=== PATIENT | female | born 1965 | race Hispanic/Latino ===

== ENCOUNTER 2018-12-14 13:47 | Emergency (ER) | payer MEDICARE, OTHER ==
--- NOTE | 2018-12-14 14:22 | Event Note ---
ED Screening Note Date of service: 12/14/18 Time: 14:10 ED Screening Note: 53 y/o female comes in for WILTON, Hx/o D<, thyroid Ca. This initial assessment/diagnostic orders/clinical plan/treatment(s) is/are subject to change based on patients health status, clinical progression and re- assessment by fellow clinical providers in the ED. Further treatment and workup at subsequent clinical providers discretion. Patient/guardian urged not to elope from the ED as their condition may be serious if not clinically assessed and managed. Initial orders include:
[2018-12-14 15:08] LABS: Basophils # (Auto) 0.1 K/mm3 (0.0-0.1); Basophils % (Auto) 1.4 % (0.0-1.8); Eosinophils # (Auto) 0.4 K/mm3 (0.0-0.4); Eosinophils % (Auto) 4.8 % (0.0-4.3); Hematocrit 37.4 % (30.3-42.9); Hemoglobin 12.4 gm/dl (10.1-14.3); Lymphocytes # (Auto) 2.7 K/mm3 (1.2-5.4); Lymphocytes % (Auto) 35.1 % (13.4-35.0); Mean Corpuscular HGB Conc 33 % (30-34); Mean Corpuscular Volume 82 fl (79-97); Monocytes # (Auto) 0.5 K/mm3 (0.0-0.8); Platelet Count 170 K/mm3 (140-440); Red Blood Count 4.54 M/mm3 (3.65-5.03); Red Cell Distribution Width 17.2 % (13.2-15.2)
[2018-12-14 15:24] LABS: Alanine Aminotransferase 49 units/L (7-56); Albumin 3.5 g/dL (3.9-5); BUN/Creatinine Ratio 17; Blood Urea Nitrogen 17 mg/dL (7-17); Calcium 8.8 mg/dL (8.4-10.2); Hemolysis Index 6
[2018-12-14] MEDS ORDERED: HumuLIN R SUB-Q ONE ×2 (17:26→17:32)
[2018-12-14] MEDS ORDERED: HumuLIN R IV ONE (17:29)
[2018-12-14] MEDS ORDERED: ULTRAM PO ONE (17:31)
--- NOTE | 2018-12-14 17:34 | Emergency Department Report ---
ED General Adult HPI - General Chief complaint: Chest Pain Stated complaint: DIFFICULTY BREATHING/ ARM PAIN RT Time Seen by Provider: 12/14/18 17:26 Source: patient Mode of arrival: Ambulatory Limitations: No Limitations - History of Present Illness Initial comments: Mrs. Armstrong is a 53 yo female who presents with need for medical clearance to return to [facility]. She has chronic arm and back pain. Awaiting referral to pain clinic. Denies chest pain. IN september, stent placed in SVC for thrombosis. No fever. No dyspnea. Has not had her diabetes medicine today. She denies shortness of breath although that was her presenting complaint acco rding to triage intake form. -: Gradual, month(s) (several months of pain) Severity scale (0 -10): 8 Quality: other (burning pain in her arm and back, has been diagnosed with neuropathy and rotator cuff issues also diagnosed with DDD) Consistency: constant Associated Symptoms: denies other symptoms - Related Data Allergies Allergy/AdvReac Type Severity Reaction Status Date / Time No Known Allergies Allergy Verified 12/14/18 14:17 ED Review of Systems ROS: Stated complaint: DIFFICULTY BREATHING/ ARM PAIN RT Other details as noted in HPI Comment: All other systems reviewed and negative Constitutional: denies: fever, malaise Respiratory: denies: cough, shortness of breath Cardiovascular: denies: chest pain ED Past Medical Hx - Past Medical History Previous Medical History?: Yes Hx Deep Vein Thrombosis: Yes Additional medical history: 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 Absent: respiratory distress, wheezes, rales, rhonchi - Cardiovascular Cardiovascular Exam: Present: regular rate, normal rhythm, normal heart sounds. Absent: systolic murmur, diastolic murmur, rubs, gallop - GI/Abdominal GI/Abdominal exam: Present: soft, normal bowel sounds. Absent: distended, tenderness, guarding, rebound - Extremities Exam Extremities exam: Present: normal inspection - Back Exam Back exam: Present: normal inspection - Neurological Exam Neurological exam: Present: alert, oriented X3 - Psychiatric Psychiatric exam: Present: normal affect, normal mood - Skin Skin exam: Present: warm, dry, intact, normal color. Absent: rash ED Course Vital Signs 12/14/18 12/14/18 14:15 16:43 Temperature 98.3 F 98.5 F Pulse Rate 91 H 86 Respiratory 20 20 Rate Blood Pressure 128/55 136/73 O2 Sat by Pulse 99 97 Oximetry ED Medical Decision Making - Lab Data Result diagrams: 12/14/18 14:28 12/14/18 14:28 - EKG Data -: EKG Interpreted by Me EKG shows normal: sinus rhythm, axis, intervals, QRS complexes, ST-T waves Rate: normal - Medical Decision Making Mrs. Armstrong presents with chronic pain in her back and arm. Previous diagnosis of degenerative disc disease and rotator cuff injury. Chest extremities diagnoses at [facility]. n. She states that she is not allowed to have tramadol while she is residing at the [facility]. She also has not been able to take her diabetes medication. She was given subcutaneous insulin in the ED. She also is given tramadol. Discharged home in stable condition. She is medically cleared to return to the [facility] No evidence of acute emergent illness at this time. Normal EKG Critical care attestation.: If time is entered above; I have spent that time in minutes in the direct care of this critically ill patient, excluding procedure time. ED Disposition Clinical Impression: Right rotator cuff tendinitis, Lumbar degenerative disc disease, Acute hyperglycemia, Diabetes mellitus Disposition: - TO HOME OR SELFCARE Is pt being admited?: No Does the pt Need Aspirin: No Condition: Stable Instructions: Diabetic Hyperglycemia (ED) Referrals: MARII OCONNOR MD [Primary Care Provider] - 3-5 Days
[2018-12-14] MEDS ORDERED: TORADOL IM ONE (17:45)
[2018-12-14 18:02] VITALS: BP 117/63
== END 2018-12-14 18:05 | disposition home or self-care (01) ==
LOC: ED 13:47
DX: M75.101 Unspecified rotator cuff tear or rupture of right shoulder, not specified as traumatic (principal); M51.36 Other intervertebral disc degeneration, lumbar region; G89.29 Other chronic pain; E11.65 Type 2 diabetes mellitus with hyperglycemia; E11.40 Type 2 diabetes mellitus with diabetic neuropathy, unspecified; F17.200 Nicotine dependence, unspecified, uncomplicated; Z86.718 Personal history of other venous thrombosis and embolism; Z95.1 Presence of aortocoronary bypass graft
CPT/HCPCS: 36415; 80053; 82805; 82962; 85025; 93005; 93010; 96372; 96374; 99283; J1885; J1815

== ENCOUNTER 2019-01-04 23:30 | Inpatient (IN) | payer MEDICARE, OTHER ==
[2019-01-04] MEDS ORDERED: ASPIRIN PO ONE (23:58)
[2019-01-05] MEDS ORDERED: SUBLIMAZE IV ONE (00:31)
[2019-01-05] MEDS ORDERED: NITRO-BID 2% TP ONE (00:31)
[2019-01-05] MEDS ORDERED: ZOFRAN IV ONE (00:31)
--- NOTE | 2019-01-05 00:38 | Emergency Department Report ---
HPI - General Chief Complaint: Chest Pain Time Seen by Provider: 01/05/19 00:24 - HPI HPI: Room 9 The patient is a 53-year-old female presenting with chief complaint chest pain. The patient states for the past 1.5 hour she's had left-sided chest pain is sharp and intermittent in nature radiating to both upper extremities and across her back. Patient describes the pain as sharp and associated with shortness of breath and diaphoresis. Patient denies nausea/vomiting. The patient states she was diagnosed with a PE early 2018 and has been compliant with her Eliquis. The patient currently gives her chest pain score of 7-8/10. The patient states her last catheterization occurred 09/26/2018 she had a cardiac stent placed Location: Left chest, see above Duration: [See above] Quality: [See above] Severity: [See above] Modifying factors: [see above] Context: [see above] Mode of transportation: [not driving] ED Past Medical Hx - Past Medical History Previous Medical History?: Yes Hx Hypertension: Yes Hx Deep Vein Thrombosis: Yes Hx of Cancer: Yes (breast CA) Hx COPD: Yes (no home O2) Additional medical history: Pulmonary Embolism, lymphedema - Surgical History Past Surgical History?: Yes Hx Coronary Stent: Yes Hx Breast Surgery: Yes (bilateral mastectomy) Additional Surgical History: 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 - Family History Family history: no significant - Social History Smoking Status: Current Every Day Smoker (1/2 pack per day) Substance Use Type: None (denies illicit drug use) ED Review of Systems ROS: Stated complaint: CHEST PAIN Other details as noted in HPI Constitutional: diaphoresis Eyes: denies: eye pain ENT: denies: throat pain Respiratory: shortness of breath Cardiovascular: chest pain Endocrine: no symptoms reported Gastrointestinal: denies: nausea, vomiting Genitourinary: denies: dysuria Musculoskeletal: back pain Neurological: denies: headache Physical Exam - Physical Exam Vital Signs: Vital Signs 01/04/19 23:48 Temperature 97.9 F Pulse Rate 84 Respiratory 18 Rate Blood Pressure 123/64 O2 Sat by Pulse 95 Oximetry Physical Exam: GENERAL: The patient is well-developed well-nourished female lying on stretcher not appearing to be in acute distress. [] HEENT: Normocephalic. Atraumatic. Extraocular motions are intact. Patient has moist mucous membranes. NECK: Supple. Trachea midline CHEST/LUNGS: Clear to auscultation. There is no respiratory distress noted. HEART/CARDIOVASCULAR: Regular. There is no tachycardia. There is no gallop rub or murmur. ABDOMEN: Abdomen is soft, nontender. Patient has normal bowel sounds. There is no abdominal distention. SKIN: There is no rash. There is no edema. There is no diaphoresis. NEURO: The patient is awake, alert, and oriented. The patient is cooperative. The patient has normal speech MUSCULOSKELETAL: There is no evidence of acute injury. ED Course Vital Signs 01/04/19 23:48 Temperature 97.9 F Pulse Rate 84 Respiratory 18 Rate Blood Pressure 123/64 O2 Sat by Pulse 95 Oximetry - Consultations Consultation #1: 01/05/19 02:19 Case discussed with admitting physician Dr. Almeida. Requests heparin drip be initiated (no bolus) ED Medical Decision Making - Lab Data Result diagrams: 01/05/19 00:20 01/05/19 00:20 Laboratory Results - last 24 hr 01/05/19 01/05/19 01/05/19 00:20 00:20 00:39 WBC 11.3 H RBC 4.58 Hgb 12.7 Hct 37.9 MCV 83 MCH 28 MCHC 33 RDW 15.6 H Plt Count 161 Lymph % (Auto) 31.5 Meagher % (Auto) 5.0 Eos % (Auto) 5.0 H Baso % (Auto) 1.4 Lymph # 3.6 Meagher # 0.6 Eos # 0.6 H Baso # 0.2 H Seg Neutrophils % 57.1 Seg Neutrophils # 6.5 PT 14.0 INR 1.11 Sodium 139 Potassium 4.1 Chloride 99.6 Carbon Dioxide 27 Anion Gap 17 BUN 22 H Creatinine 1.1 Estimated GFR 52 BUN/Creatinine Ratio 20 Glucose 312 H Calcium 8.9 Troponin T < 0.010 - EKG Data -: EKG Interpreted by Me EKG shows normal: sinus rhythm Rate: normal - EKG Data When compared to previous EKG there are: previous EKG unavailable Interpretation: other (no ischemic changes seen) - Radiology Data Radiology results: report reviewed (chest x-ray, CT chest), image reviewed (chest x-ray, CT chest) interpreted by me: Chest x-ray-no focal infiltrate, no pneumothorax [facility] [address] [place] [address] XRay Report Signed Patient: KEIRA LOWE MR#: [id number] : 1965 Acct:[id number] Age/Sex: 53 / F ADM Date: 01/04/19 Loc: ED Attending Dr: Ordering Physician: FRIDA MARKS MD Date of Service: 01/04/19 Procedure(s): XR chest 1V ap Accession Number(s): [id number] cc: FRIDA MARKS MD Fluoro Time In Minutes: CHEST 1 VIEW 01/05/2019 12:17 AM INDICATION / CLINICAL INFORMATION: Chest Pain. COMPARISON: None available. FINDINGS: SUPPORT DEVICES: None. HEART / MEDIASTINUM: No significant abnormality. LUNGS / PLEURA: No significant pulmonary or pleural abnormality. No pneumothorax. ADDITIONAL FINDINGS: No significant additional findings. IMPRESSION: No acute findings. Signer Name: Roger Rodriguez MD Signed: 01/05/2019 12:34 AM Workstation Name: [email or web address] Transcribed By: [place] Dictated By: Roger Rodriguze MD Electronically Authenticated By: Roger Rodriguez MD Signed Date/Time: 01/05/1935 DD/ TD/TT: [address] [address] Cat Scan Report Signed Patient: KEIRA LOWE MR#: [id number] : 1965 Acct:[id number] Age/Sex: 53 / F ADM Date: 01/04/19 Loc: ED Attending Dr: Ordering Physician: FRIDA MARKS MD Date of Service: 01/05/19 Procedure(s): CT angio chest Accession Number(s): [id number] cc: FRIDA MARKS MD CTA CHEST WITH IV CONTRAST INDICATION: chest pain, back pain. TECHNIQUE: Axial CT images were obtained through the chest after injection of 100 mL Omnipaque 300 IV contrast. 3 plane MIP reconstructions were produced. All CT scans at this location are performed using CT dose reduction for ALARA by means of automated exposure control. COMPARISON: One view of the chest from 01/04/2019. FINDINGS: PULMONARY ARTERIES: Well-opacified with multifocal segmental and subsegmental occlusive thromboemboli throughout the left lower lobe. No saddle embolism. AORTA AND ARTERIES: No acute abnormality. MEDIASTINUM: No mass, lymphadenopathy or other significant abnormality. The heart is normal in size without a pericardial effusion. No evidence of right heart strain. The trachea and main bronchi are patent and normal in caliber. LUNGS: Mild dependent atelectasis is noted along the lower lobes. There is mild lingular atelectasis/scarring. The lungs are otherwise clear. No pneumothorax or pleural effusion is seen. ADDITIONAL FI NDINGS: None. UPPER ABDOMEN: No acute findings. BONES: No acute abnormality. Degenerative changes are seen throughout the spine. IMPRESSION: 1. Extensive occlusive segmental/subsegmental left lower lobe PTE. No CT evidence of right heart strain. 2. Additional findings as above. CRITICAL RESULT: Radiologist: Dr. Rodriguez Time of Discovery: 01:10 Time of Communication: 01:13 Licensed Practitioner Receiving Report: Dr. Marks Read Back Performed: Yes. Signer Name: Roger Rodriguez MD Signed: 01/05/2019 2:13 AM Workstation Name: [id number] Transcribed By: MALLIKA Dictated By: Roger Rodriguez MD Electronically Authenticated By: Roger Rodriguez MD Signed Date/Time: 01/05/19212 DD/ 5 TD/TT: - Differential Diagnosis ACS, pericarditis, PE, GERD Critical care attestation.: If time is entered above; I have spent that time in minutes in the direct care of this critically ill patient, excluding procedure time. ED Disposition Clinical Impression: Chest pain, Pulmonary emboli Disposition: OP ADMIT IP TO THIS HOSP Is pt being admited?: Yes Does the pt Need Aspirin: Yes Condition: Fair Instructions: Chest Pain (ED) Referrals: ANTIMONY JOSESAINT JOSEPH MD KAYCEE [Primary Care Provider] - 3-5 Days Time of Disposition: 02:15 (hospitalist paged (Dr Ellyn Almeida))
[2019-01-05 00:50] LABS: Basophils # (Auto) 0.2 K/mm3 (0.0-0.1); Basophils % (Auto) 1.4 % (0.0-1.8); Eosinophils # (Auto) 0.6 K/mm3 (0.0-0.4); Hematocrit 37.9 % (30.3-42.9); Hemoglobin 12.7 gm/dl (10.1-14.3); Lymphocytes # (Auto) 3.6 K/mm3 (1.2-5.4); Lymphocytes % (Auto) 31.5 % (13.4-35.0); Mean Corpuscular HGB Conc 33 % (30-34); Mean Corpuscular Hemoglobin 28 pg (28-32); Mean Corpuscular Volume 83 fl (79-97); Monocytes # (Auto) 0.6 K/mm3 (0.0-0.8); Platelet Count 161 K/mm3 (140-440); Red Blood Count 4.58 M/mm3 (3.65-5.03); Red Cell Distribution Width 15.6 % (13.2-15.2)
[2019-01-05 01:05] LABS: BUN/Creatinine Ratio 20; Blood Urea Nitrogen 22 mg/dL (7-17); Calcium 8.9 mg/dL (8.4-10.2); Hemolysis Index 10
[2019-01-05 01:28] LABS: INR 1.11 (0.87-1.13)
--- NOTE | 2019-01-05 02:17 | Cat Scan Report ---
CTA CHEST WITH IV CONTRAST INDICATION: chest pain, back pain. TECHNIQUE: Axial CT images were obtained through the chest after injection of 100 mL Omnipaque 300 IV contrast. 3 plane MIP reconstructions were produced. All CT scans at this location are performed using CT dose reduction for ALARA by means of automated exposure control. COMPARISON: One view of the chest from 01/04/2019. FINDINGS: PULMONARY ARTERIES: Well-opacified with multifocal segmental and subsegmental occlusive thromboemboli throughout the left lower lobe. No saddle embolism. AORTA AND ARTERIES: No acute abnormality. MEDIASTINUM: No mass, lymphadenopathy or other significant abnormality. The heart is normal in size w ithout a pericardial effusion. No evidence of right heart strain. The trachea and main bronchi are pa tent and normal in caliber. LUNGS: Mild dependent atelectasis is noted along the lower lobes. There is mild lingular atelectasis/ scarring. The lungs are otherwise clear. No pneumothorax or pleural effusion is seen. ADDITIONAL FINDINGS: None. UPPER ABDOMEN: No acute findings. BONES: No acute abnormality. Degenerative changes are seen throughout the spine. IMPRESSION: 1. Extensive occlusive segmental/subsegmental left lower lobe PTE. No CT evidence of right heart stra in. 2. Additional findings as above. CRITICAL RESULT: Radiologist: Dr. Rodriguez Time of Discovery: 01:10 Time of Communication: 01:13 Licensed Practitioner Receiving Report: Dr. Hunter Read Back Performed: Yes. Signer Name: Roger Rodriguez MD Signed: 01/05/2019 2:13 AM Workstation Name: [email or web address]
[2019-01-05 02:55] LABS: Hematocrit 36.1 % (30.3-42.9); Hemoglobin 12.1 gm/dl (10.1-14.3)
[2019-01-05 02:57] LABS: INR 1.07 (0.87-1.13); Partial Thromboplastin Time 30.9 Sec. (24.2-36.6)
[2019-01-05] MEDS ORDERED: NITROSTAT SL PRN (03:36)
[2019-01-05] MEDS ORDERED: TYLENOL PO PRN (03:37)
[2019-01-05] MEDS ORDERED: D50W (25GM) Syringe IV PRN (03:41)
[2019-01-05] MEDS ORDERED: ZOFRAN IV PRN (03:44)
[2019-01-05] MEDS: HEPARIN/ 0.45% NACL-25,000 UNIT/500 ML 25,000 UNIT/500 ML BAG IV SCH (03:54)
[2019-01-05 05:55] LABS: Creatine Kinase MB 4.2 ng/mL (0.0-4.0)
[2019-01-05] MEDS: NITRO-BID 2% TP SCH ×4 (06:00→19:54)
[2019-01-05] MEDS ORDERED: HumuLIN R ONE (08:10)
[2019-01-05] MEDS ORDERED: MORPHINE ONE (08:11)
[2019-01-05] MEDS: MORPHINE IV PRN ×3 (08:13→20:23)
[2019-01-05] MEDS: HumuLIN R SUB-Q SCH ×4 (08:13→17:00)
--- NOTE | 2019-01-05 09:09 | History and Physical Report ---
CHIEF COMPLAINT: Chest pain. OTHER COMPLAINTS: Include shortness of breath. HISTORY OF PRESENT ILLNESS: The patient is a 53-year-old female who said she started having precordial chest pain since yesterday. Pain is associated with left shoulder and right shoulder pain as well. There is associated shortness of breath and diaphoresis. There is no history of nausea. No history of vomiting. No history of fever, chills, cough. The patient states she is on Eliquis for recurrent pulmonary embolism. There is no history of pain in the lower extremities. PAST MEDICAL HISTORY: Pertinent for hypertension, deep vein thrombosis, history of breast cancer, history of chronic obstructive pulmonary disease, recurrent pulmonary embolism and lymphedema. PAST SURGICAL HISTORY: Pertinent for coronary stent placement, bilateral mastectomy because of breast cancer. FAMILY HISTORY: Noncontributory. SOCIAL HISTORY: The patient smokes cigarettes, does not drink alcohol and does not use illicit drug. MEDICATIONS: The patient's home medications are not known, but is noted to include Eliquis. ALLERGIES: The patient is allergic to HALOPERIDOL, LITHIUM, PENICILLIN, QUETIAPINE and VANCOMYCIN. REVIEW OF SYSTEMS: CONSTITUTIONAL: There is no fever, no chills. Diaphoresis is present. HEENT: There is no headache or sore throat. CARDIOVASCULAR SYSTEM: Chest pain is present. No orthopnea. RESPIRATORY SYSTEM: Shortness of breath is present. No cough. GASTROINTESTINAL SYSTEM: There is no numbness, no dizziness, no altered mental status. MUSCULOSKELETAL SYSTEM: Pain in both left and right shoulder areas noted. There is no joint swelling. DERMATOLOGICAL SYSTEM: There is no skin rash or itching. GENITOURINARY SYSTEM: There is no dysuria, hematuria, or flank pain. Rest of systems review is normal. PHYSICAL EXAMINATION: GENERAL: At the time of exam, the patient was found to be alert, oriented x 3 and not in acute distress. VITAL SIGNS: At the initial time of presentation showed temperature of 97.9 degrees Fahrenheit, pulse of 84, respirations 18, blood pressure 123/64, O2 sat of 95% on room air. HEENT: Showed pupils to be equal, round, reactive to light and accommodating. Extraocular muscles are intact. NECK: Supple with no JVD or carotid bruit. CARDIOVASCULAR SYSTEM: Showed normal first and second heart sounds with no gallops or murmurs. RESPIRATORY SYSTEM: Showed good air entry on both sides of the lungs with no abnormal breath sounds. GASTROINTESTINAL SYSTEM: Showed abdomen to be full, soft, nontender with no organomegaly or rigidity. NEUROLOGICAL: No focal deficit. MUSCULOSKELETAL SYSTEM: Showed no joint swelling or tenderness. DERMATOLOGICAL SYSTEM: Showed no skin rash. GENITOURINARY SYSTEM: Showing no costovertebral angle tenderness. PERTINENT LABORATORY DATA AND IMAGING STUDIES: The patient has the following imaging studies done. CHEST X-RAY: Chest x-ray shows no acute findings. The patient has CT angiogram of the chest done that shows extensive occlusive segmental/subsegmental left lower lobe pulmonary thromboembolic findings and there is no CT evidence of right heart strain. There is finding of mild lingular atelectasis with scarring. There is no pneumothorax or pleural effusion seen. LAB RESULTS: The patient has CBC done with elevated white count of 11,300, normal hemoglobin, normal hematocrit with CBC differential showing elevated eosinophil count of 5% and some basophil count elevation as well. The patient's coagulation studies were unremarkable. Chemistry shows elevated blood glucose level of 312 with slightly elevated BUN of 22 and normal creatinine as well as low GFR of 52. DIAGNOSES: 1. Left lung pulmonary embolism while on Eliquis. 2. Chest pain. 3. Hyperglycemia. PLAN OF CARE: 1. The patient will be admitted as inpatient to telemetry. 2. The patient will continue IV Heparin drip started in the Emergency Room. 3. The patient will be on IV morphine 2 mg every 3 hours as needed for pain and IV Zofran 4 mg every 8 hours as needed for nausea and vomiting. 4. The patient will be on aspirin 81 mg by mouth daily and will be on Tylenol 650 mg by mouth every 4 hours for fever and headache. 5. The patient will be on nitro paste half inch x 3 on chest wall q.i.d. and will be on sublingual nitroglycerin 0.4 mg every 5 minutes as needed for breakthrough chest pain. 6. The patient will have Pulmonary consult with Dr. Gooden because of recurrent pulmonary embolism while on Eliquis blood thinner. 7. The patient will have Cardiology consult with Dr. Layton because of chest pain in a patient with past history of coronary artery disease. 8. The patient will be on Accu-Chek before meals and at bedtime, followed by low-dose sliding scale using regular insulin coverage. 9. The patient will be on oxygen by nasal cannula at 2 liters per minute. 10. The patient's diet will be consisting carbohydrate, low-sodium diet. JOB# [id number] OCN/NTS
--- NOTE | 2019-01-05 09:46 | Event Note ---
Date: 01/05/19 Patient with recurrent pulmonary embolism, currently on Eliquis. I have seen and examined her.
[2019-01-05] MEDS: BABY ASPIRIN PO SCH ×2 (11:00→12:57)
[2019-01-05 12:29] LABS: Creatine Kinase MB 4.1 ng/mL (0.0-4.0)
--- NOTE | 2019-01-05 12:55 | Consultation ---
History of Present Illness Consult date: 01/05/19 Consult reason: chest pain History of present illness: This is a 53 year old woman who presented with chest pain, admitted with recurrent PE. Patient gives a history of Breast Cancer, Depression, Pulmonary Embolism dating back several years ago. Patient also reports a recent history of superior vena cava obstruction and is status post stent placement done in September. Patient takes Eliquis for anticoagulation and reports compliance. There is no history of coronary artery disease. She had no recent cardiac workup. 12 lead ECG is benign, a normal sinus rhythm. Medications and Allergies Allergies Allergy/AdvReac Type Severity Reaction Status Date / Time haloperidol [From Haldol] Allergy Seizure Verified 01/04/19 23:47 lithium Allergy Unknown Verified 01/04/19 23:47 Penicillins Allergy Unknown Verified 01/04/19 23:47 quetiapine [From Seroquel] Allergy Unknown Verified 01/04/19 23:47 vancomycin Allergy Anaphylaxis Verified 01/04/19 23:47 Home Medications Medication Instructions Recorded Confirmed Last Taken Type AtorvaSTATin 40 mg HS 01/05/19 01/05/19 Unknown History Eliquis 5 mg BID 01/05/19 01/05/19 01/04/19 History Geodon 40 mg PO BID 01/05/19 01/05/19 01/04/19 History Insulin Detemir [Levemir Flextouch] 20 units BID 01/05/19 01/05/19 01/04/19 History Neurontin 900 mg PO TID 01/05/19 01/05/19 01/04/19 History Qvar Redihaler 01/05/19 Unknown History Spiriva Respimat IH PRN 01/05/19 Unknown History Synthroid 150 mg PO DAILY 01/05/19 01/05/19 01/04/19 History Triamterene-Hctz 37.5-25 mg Cp 37.5 mg PO DAILY 01/05/19 01/05/19 01/04/19 History Trileptal 150 mg PO BID 01/05/19 01/05/19 01/04/19 History Vistaril 50 mg PO PRN 01/05/19 01/05/19 01/04/19 History methOCARBAMOL [Robaxin TAB] 750 mg PO TID 01/05/19 01/05/19 Unknown History Active Meds: Active Medications Acetaminophen (Tylenol) 650 mg PO Q4H PRN PRN Reason: Headache Aspirin (Baby Aspirin) 81 mg PO QDAY [facility] Dextrose (D50w (25gm) Syringe) 50 ml IV PRN PRN PRN Reason: Hypoglycemia Heparin Sodium/Sodium Chloride (Heparin/ 0.45% Nacl-25,000 Unit/500 Ml) 25,000 unit in 500 mls @ 20 mls/hr IV TITRATE [facility]; Protocol Last Titration: 01/05/19 11:52 Dose: 900 units/hr, 18 mls/hr Documented by: Insulin Human Regular (Humulin R) 0 units SUB-Q AC [facility]; Protocol Last Admin: 01/05/19 08:13 Dose: 5 units Documented by: Insulin Human Regular (Humulin R) 0 units SUB-Q QHS [facility]; Protocol Morphine Sulfate (Morphine) 2 mg IV Q3H PRN PRN Reason: Pain, Moderate (4-6) Last Admin: 01/05/19 08:13 Dose: 2 mg Documented by: Nitroglycerin (Nitro-Bid 2%) 0.5 inch TP QIDNTG [facility]; Protocol Last Admin: 01/05/19 06:00 Dose: Not Given Documented by: Nitroglycerin (Nitrostat) 0.4 mg SL .Q5MIN PRN PRN Reason: Chest Pain Ondansetron HCl (Zofran) 4 mg IV Q8H PRN PRN Reason: Nausea And Vomiting Physical Examination Vital Signs Temp Pulse Resp BP Pulse Ox 97.9 F 84 18 123/64 95 01/04/19 23:48 01/04/19 23:48 01/04/19 23:48 01/04/19 23:48 01/04/19 23:48 General appearance: no acute distress HEENT: Positive: PERRL Neck: Positive: trachea midline Cardiac: Positive: Reg Rate and Rhythm Lungs: Positive: Normal Breath Sounds Neuro: Positive: Grossly Intact Extremities: Absent: edema Results 01/05/19 02:27 01/05/19 00:20 Cardiac Enzymes 01/05/19 01/05/19 Range/Units 05:13 11:17 CK-MB (CK-2) 4.2 H 4.1 H (0.0-4.0) ng/mL Coagulation 01/05/19 01/05/19 Range/Units 00:39 02:27 PT 14.0 13.6 (12.2-14.9) Sec. INR 1.11 1.07 (0.87-1.13) APTT 30.9 (24.2-36.6) Sec. CBC 01/05/19 01/05/19 Range/Units 00:20 02:27 WBC 11.3 H (4.5-11.0) K/mm3 RBC 4.58 (3.65-5.03) M/mm3 Hgb 12.7 12.1 (10.1-14.3) gm/dl Hct 37.9 36.1 (30.3-42.9) % Plt Count 161 145 (140-440) K/mm3 Lymph # 3.6 (1.2-5.4) K/mm3 [place] # 0.6 (0.0-0.8) K/mm3 Eos # 0.6 H (0.0-0.4) K/mm3 Baso # 0.2 H (0.0-0.1) K/mm3 Comprehensive Metabolic Panel 01/05/19 Range/Units 00:20 Sodium 139 (137-145) mmol/L Potassium 4.1 (3.6-5.0) mmol/L Chloride 99.6 (98-107) mmol/L Carbon Dioxide 27 (22-30) mmol/L BUN 22 H (7-17) mg/dL Creatinine 1.1 (0.7-1.2) mg/dL Glucose 312 H (65-100) mg/dL Calcium 8.9 (8.4-10.2) mg/dL Assessment and Plan Recurrent PE while on eliquis Hx of Depression Hx of Breast Cancer Hx of SVC s/p PCI 09/2018 Recommendations: Echocardiogram for LVEF assessment. Pulmonary consultation and evaluation of recurrent PE while on Eliquis.
[2019-01-05] MEDS: GEODON PO SCH ×2 (13:00→21:48)
[2019-01-05] MEDS ORDERED: INSULIN DETEMIR 25 UNIT SUB-Q SCH (13:45)
[2019-01-05] MEDS ORDERED: [UNRECOGNIZED DRUG - OTHER] PO SCH (13:45)
[2019-01-05] MEDS ORDERED: TRILEPTAL 150 MG PO SCH (13:45)
[2019-01-05] MEDS ORDERED: TRIAMTERENE HCTZ PO SCH (13:45)
[2019-01-05] MEDS ORDERED: LEVOTHYROXINE PO SCH (13:45)
[2019-01-05] MEDS ORDERED: GEODON 40 MG PO SCH (13:45)
[2019-01-05] MEDS ORDERED: VISTARIL PO SCH (13:45)
--- NOTE | 2019-01-05 13:57 | Consultation ---
History of Present Illness Reason for consult: dyspnea, chest pain, pulmonary embolism History of present illness: 01/05/19 See ER/hospitalist notes 53yo F adm w ant/L pleuritic chest pain and incr sob x 1d came to ER CTA shows PE with min contrast into LLL not clear if this is old or new finding Smoker over many yrs continues to smoke History of breast CA had bilat mastectomies apparentlly disease free surgery done this year? Had PE in past going back to 2002? on various anticoags including coumadin, eliquis, lovenox had recurrence despite med compliance Had coagulopathy w/up results not clear told no coag disorder Heart w/up 'neg' Pt states compliant w meds Past History Past Medical History: cancer, pulmonary embolism Past Surgical History: mastectomy Social history: smoking Medications and Allergies Allergies Allergy/AdvReac Type Severity Reaction Status Date / Time haloperidol [From Haldol] Allergy Seizure Verified 01/04/19 23:47 lithium Allergy Unknown Verified 01/04/19 23:47 Penicillins Allergy Unknown Verified 01/04/19 23:47 quetiapine [From Seroquel] Allergy Unknown Verified 01/04/19 23:47 vancomycin Allergy Anaphylaxis Verified 01/04/19 23:47 Home Medications Medication Instructions Recorded Confirmed Last Taken Type AtorvaSTATin 40 mg HS 01/05/19 01/05/19 Unknown History Eliquis 5 mg BID 01/05/19 01/05/19 01/04/19 History Geodon 40 mg PO BID 01/05/19 01/05/19 01/04/19 History Insulin Detemir [Levemir Flextouch] 25 units BID 01/05/19 01/05/19 01/04/19 History Neurontin 900 mg PO TID 01/05/19 01/05/19 01/04/19 History Qvar Redihaler 01/05/19 Unknown History Spiriva Respimat IH PRN 01/05/19 Unknown History Synthroid 150 mg PO DAILY 01/05/19 01/05/19 01/04/19 History Triamterene-Hctz 37.5-25 mg Cp 37.5 mg PO DAILY 01/05/19 01/05/19 01/04/19 History Trileptal 150 mg PO BID 01/05/19 01/05/19 01/04/19 History Vistaril 50 mg PO PRN 01/05/19 01/05/19 01/04/19 History methOCARBAMOL [Robaxin TAB] 750 mg PO TID 01/05/19 01/05/19 Unknown History Active Meds: Active Medications Acetaminophen (Tylenol) 650 mg PO Q4H PRN PRN Reason: Headache Aspirin (Baby Aspirin) 81 mg PO QDAY [facility] Last Admin: 01/05/19 12:57 Dose: Not Given Documented by: Dextrose (D50w (25gm) Syringe) 50 ml IV PRN PRN PRN Reason: Hypoglycemia Heparin Sodium/Sodium Chloride (Heparin/ 0.45% Nacl-25,000 Unit/500 Ml) 25,000 unit in 500 mls @ 20 mls/hr IV TITRATE [facility]; Protocol Last Titration: 01/05/19 11:52 Dose: 900 units/hr, 18 mls/hr Documented by: Insulin Human Regular (Humulin R) 0 units SUB-Q AC [facility]; Protocol Last Admin: 01/05/19 12:58 Dose: Not Given Documented by: Insulin Human Regular (Humulin R) 0 units SUB-Q QHS [facility]; Protocol Methocarbamol (Robaxin) 750 mg PO TID [facility] Miscellaneous Medication (Vistaril) 50 mg PO PRN [facility] Miscellaneous Medication (Trileptal) 150 mg PO BID [facility] Miscellaneous Medication (Triamterene-Hctz 37.5-25 Mg Cp) 37.5 mg PO DAILY [facility] Miscellaneous Medication (Synthroid) 150 mg PO DAILY [facility] Miscellaneous Medication (Neurontin) 900 mg PO TID [facility] Miscellaneous Medication (Insulin Detemir [Levemir Flextouch]) 25 units SUB-Q BID [facility] Miscellaneous Medication (Geodon) 40 mg PO BID [facility] Miscellaneous Medication (Atorvastatin) 40 mg PO HS [facility] Morphine Sulfate (Morphine) 2 mg IV Q3H PRN PRN Reason: Pain, Moderate (4-6) Last Admin: 01/05/19 13:11 Dose: 2 mg Documented by: Nitroglycerin (Nitro-Bid 2%) 0.5 inch TP QIDNTG [facility]; Protocol Last Admin: 01/05/19 12:43 Dose: Not Given Documented by: Nitroglycerin (Nitrostat) 0.4 mg SL .Q5MIN PRN PRN Reason: Chest Pain Ondansetron HCl (Zofran) 4 mg IV Q8H PRN PRN Reason: Nausea And Vomiting Review of Systems Constitutional: no fever Breasts: other (mastectomy bilat ) Respiratory: shortness of breath, wheezing, pleurisy, pain on inspiration, no hemoptysis, no home oxygen Physical Examination Vital signs: Vital Signs Temp Pulse Resp BP Pulse Ox 97.9 F 84 18 123/64 95 01/04/19 23:48 01/04/19 23:48 01/04/19 23:48 01/04/19 23:48 01/04/19 23:48 General appearance: no acute distress Ascultation: Bilateral: clear Cardiovascular: regular rate and rhythm Gastrointestinal: soft Extremities: no edema non-focal exam Results - Laboratory Findings CBC and BMP: 01/05/19 02:27 01/05/19 00:20 PT/INR, D-dimer PT 13.6 Sec. (12.2-14.9) 01/05/19 02:27 INR 1.07 (0.87-1.13) 01/05/19 02:27 Abnormal lab findings: Abnormal Labs 01/05/19 01/05/19 01/05/19 00:20 00:20 05:13 WBC 11.3 H RDW 15.6 H Eos % (Auto) 5.0 H Eos # 0.6 H Baso # 0.2 H Heparin Anti-Xa Level BUN 22 H Glucose 312 H POC Glucose Total Creatine Kinase 154 H CK-MB (CK-2) 4.2 H 01/05/19 01/05/19 01/05/19 08:07 09:56 11:17 WBC RDW Eos % (Auto) Eos # Baso # Heparin Anti-Xa Level 0.77 H BUN Glucose POC Glucose 364 H Total Creatine Kinase CK-MB (CK-2) 4.1 H 01/05/19 12:15 WBC RDW Eos % (Auto) Eos # Baso # Heparin Anti-Xa Level BUN Glucose POC Glucose 310 H Total Creatine Kinase CK-MB (CK-2) - Diagnostic Findings Chest x-ray: image reviewed CT scan - chest: image reviewed (per report ) Assessment and Plan 01/05 Pulmonary embolus ?recurrent on a/c known breast CA suspected copd smoker Agree w mgmt on heparin prob chronic a/c ?filter had neg u/s in past pt not interested May need to review prev records Stable at present
[2019-01-05] MEDS: MAXZIDE-25 PO SCH (14:00)
[2019-01-05] MEDS ORDERED: GABAPENTIN 900 MG PO SCH (14:00)
[2019-01-05] MEDS: ROBAXIN PO SCH ×2 (14:05→21:48)
[2019-01-05] MEDS ORDERED: VISTARIL PO PRN (14:05)
[2019-01-05] MEDS: SYNTHROID PO SCH (16:00)
[2019-01-05] MEDS: TRILEPTAL PO SCH ×2 (16:28→21:48)
[2019-01-05] MEDS: LANTUS SUB-Q SCH ×2 (16:30→21:47)
[2019-01-05] MEDS: NEURONTIN PO SCH ×2 (16:30→21:47)
[2019-01-05] MEDS ORDERED: NON-FORMULARY (Atorvastatin 40 MG) PO SCH (22:00)
[2019-01-05] MEDS ORDERED: HumuLIN R SUB-Q SCH (22:00)
[2019-01-06] MEDS: NITRO-BID 2% TP SCH ×3 (05:35→15:17)
[2019-01-06] MEDS: NEURONTIN PO SCH ×2 (05:38→13:46)
[2019-01-06] MEDS: SYNTHROID PO SCH (05:38)
[2019-01-06] MEDS: HEPARIN/ 0.45% NACL-25,000 UNIT/500 ML 25,000 UNIT/500 ML BAG IV SCH (05:40)
[2019-01-06] MEDS: MORPHINE IV PRN ×2 (06:22→11:36)
[2019-01-06 06:36] LABS: Hematocrit 34.7 % (30.3-42.9); Hemoglobin 11.6 gm/dl (10.1-14.3); Mean Corpuscular HGB Conc 33 % (30-34); Mean Corpuscular Hemoglobin 28 pg (28-32); Mean Corpuscular Volume 83 fl (79-97); Platelet Count 123 K/mm3 (140-440); Red Blood Count 4.19 M/mm3 (3.65-5.03); Red Cell Distribution Width 15.5 % (13.2-15.2)
[2019-01-06 06:55] LABS: BUN/Creatinine Ratio 16; Blood Urea Nitrogen 14 mg/dL (7-17); Calcium 8.6 mg/dL (8.4-10.2); Hemolysis Index 12
[2019-01-06] MEDS: HumuLIN R SUB-Q SCH ×2 (08:49→12:22)
[2019-01-06] MEDS: ROBAXIN PO SCH ×2 (09:34→13:47)
[2019-01-06] MEDS: BABY ASPIRIN PO SCH (09:35)
[2019-01-06] MEDS: GEODON PO SCH (09:35)
[2019-01-06] MEDS: TRILEPTAL PO SCH (09:36)
[2019-01-06] MEDS: LANTUS SUB-Q SCH (09:36)
[2019-01-06] MEDS ORDERED: MORPHINE ONE (11:31)
[2019-01-06 12:23] VITALS: BP 132/77
[2019-01-06] MEDS: MAXZIDE-25 PO SCH (12:23)
--- NOTE | 2019-01-06 13:21 | Progress Note ---
Assessment and Plan 01/05 Pulmonary embolus ?recurrent on a/c known breast CA suspected copd smoker Agree w mgmt on heparin prob chronic a/c ?filter had neg u/s in past pt not interested May need to review prev records Stable at present 01/06 As above on heparin at this point Would restart Eliquis and d/c heparin could start another oac try to review prev w/up hemodynamically stable Subjective Date of service: 01/06/19 Principal diagnosis: Pulm emboli Interval history: 01/06 f/up had echo will check stable clinically c/o arm pain no dyspnea Objective Vital Signs - 12hr 01/06/19 01/06/19 01/06/19 03:56 07:12 08:00 Temperature 97.5 F L 97.6 F Pulse Rate 58 L 55 L Pulse Rate [ 56 L Apical] Pulse Rate [ 56 L Radial] Respiratory 20 16 16 Rate Blood Pressure 104/45 105/46 O2 Sat by Pulse 94 94 94 Oximetry 01/06/19 01/06/19 12:06 12:20 Temperature 97.4 F L Pulse Rate 66 Pulse Rate [ Apical] Pulse Rate [ Radial] Respiratory 18 18 Rate Blood Pressure 132/77 O2 Sat by Pulse 99 Oximetry Constitutional: no acute distress, other (obese) Effort: normal Ascultation: Bilateral: clear Cardiovascular: regular rate and rhythm Gastrointestinal: soft Extremities: no edema, other (no asymetric swelling ) Neurologic: non-focal exam CBC and BMP: 01/06/19 05:13 01/06/19 05:13 ABG, PT/INR, D-dimer: PT/INR, D-dimer PT 13.6 Sec. (12.2-14.9) 01/05/19 02:27 INR 1.07 (0.87-1.13) 01/05/19 02:27 Abnormal lab findings: Abnormal Labs 01/05/19 01/05/19 01/05/19 00:20 00:20 05:13 WBC 11.3 H RDW 15.6 H Plt Count Eos % (Auto) 5.0 H Eos # 0.6 H Baso # 0.2 H Heparin Anti-Xa Level Sodium Chloride BUN 22 H Glucose 312 H POC Glucose Total Creatine Kinase 154 H CK-MB (CK-2) 4.2 H 07/22/19 07/22/19 07/22/19 08:07 09:56 11:17 WBC RDW Plt Count Eos % (Auto) Eos # Baso # Heparin Anti-Xa Level 0.77 H Sodium Chloride BUN Glucose POC Glucose 364 H Total Creatine Kinase CK-MB (CK-2) 4.1 H 01/05/19 01/05/19 01/05/19 12:15 17:34 21:00 WBC RDW Plt Count Eos % (Auto) Eos # Baso # Heparin Anti-Xa Level Sodium Chloride BUN Glucose POC Glucose 310 H 338 H 423 H Total Creatine Kinase CK-MB (CK-2) 01/06/19 01/06/19 01/06/19 05:13 05:13 08:13 WBC RDW 15.5 H Plt Count 123 L Eos % (Auto) Eos # Baso # Heparin Anti-Xa Level Sodium 136 L Chloride 97.7 L BUN Glucose 379 H POC Glucose 389 H Total Creatine Kinase CK-MB (CK-2) 01/06/19 12:26 WBC RDW Plt Count Eos % (Auto) Eos # Baso # Heparin Anti-Xa Level Sodium Chloride BUN Glucose POC Glucose 307 H Total Creatine Kinase CK-MB (CK-2) CT scan - chest: image reviewed (CT reviewed min contrast LLL supect PE ?old finding )
--- NOTE | 2019-01-06 14:31 | Discharge Summary ---
Providers - Providers Date of Admission: 01/05/19 03:29 Date of discharge: 01/06/19 Attending physician: JORDY MCALLISTER 01/05/19 06:00 Consult to Physician [CONS] Routine Comment: Consulting Provider: EUGENIA WATTS Physician Instructions: Reason For Exam: RECURRENT PULMONARY EMBOLISM WHILE ON ELLIQUIS Consult to Physician [CONS] Routine Comment: Consulting Provider: JAZMIN AYON Physician Instructions: Reason For Exam: CHEST PAIN 01/05/19 14:04 Consult to Case Management [CONS] Routine Services Needed at Discharge: Visual Merchandising Director Other Notified:: cm notified Additional Physician Instructions: would like to get hosp records from [facility] was there earlier this year? d/c summary, xray reports, consults, thx Primary care physician: KARONEAVRICHELLE SOU[facility] Hospitalization Condition: Fair Pertinent studies: Patient with chronic PE CTA consistent with PE also tobacco abuse. Patient developed multiple medications for pulmonary embolism. Was stable with elaquis. Course. Patient is noncompliant with all. Patient is taken off heparin drip. Refused to wear heparin drip. Patient has to be stopped attempting to go walk around. Demanding for transfer demanding for discharge. Patient hemodynamically stable came be treated with eloquent is. Continue this treatment. Patient didn't refuses any heparin drip refuses Coumadin refuses any invasive testing. Best treatment course this time will treat anticoagulant with eloquent course. An discharge. Disposition: - TO HOME OR SELFCARE - Discharge Diagnoses (1) Pulmonary emboli Status: Acute Core Measure Documentation - Palliative Care Palliative Care/ Comfort Measures: Not Applicable - Core Measures Any of the following diagnoses?: none Exam - Constitutional Vitals: Temp Pulse Resp BP Pulse Ox 97.4 F L 66 18 132/77 99 01/06/19 12:20 01/06/19 12:20 01/06/19 12:20 01/06/19 12:20 01/06/19 12:20 General appearance: Present: no acute distress, well-nourished - EENT Eyes: Present: PERRL ENT: hearing intact, clear oral mucosa - Neck Neck: Present: supple, normal ROM - Respiratory Respiratory effort: normal Respiratory: bilateral: CTA - Cardiovascular Heart Sounds: Present: S1 & S2. Absent: rub, click - Extremities Extremities: pulses symmetrical, No edema Peripheral Pulses: within normal limits - Abdominal General gastrointestinal: Present: soft, non-tender, non-distended, normal bowel sounds Female genitourinary: Present: normal - Integumentary Integumentary: Present: clear, warm, dry - Musculoskeletal Musculoskeletal: gait normal, strength equal bilaterally - Psychiatric Psychiatric: appropriate mood/affect, intact judgment & insight - Neurologic Neurologic: CNII-XII intact, moves all extremities Plan Activity: no restrictions Weight Bearing Status: Full Weight Bearing Diet: low fat, low cholesterol Follow up with: DAVON F[facility]ST[facility] MD KAYCEE [Referring] - 3-5 Days Prescriptions: Apixaban [Eliquis] 10 mg PO Q12HR #60 tablet Insulin Glargine [Lantus VIAL] 25 units SUB-Q BID #10 units Levothyroxine [Synthroid] 150 mcg PO DAILY@0600 #30 tablet
[2019-01-06] MEDS ORDERED: ELIQUIS PO SCH (15:00)
[2019-01-13] MEDS ORDERED: ELIQUIS PO SCH (10:00)
== END 2019-01-06 16:20 | disposition home or self-care (01) | DRG 176 ==
LOC: ED 23:30 → 4A 01-05 03:29
PROVIDERS: ADMIT Internal Medicine; ATTEND Internal Medicine
DX: I26.99 Other pulmonary embolism without acute cor pulmonale (principal); F17.210 Nicotine dependence, cigarettes, uncomplicated; J44.9 Chronic obstructive pulmonary disease, unspecified; F32.9 Major depressive disorder, single episode, unspecified; I10 Essential (primary) hypertension; R73.9 Hyperglycemia, unspecified; Z86.718 Personal history of other venous thrombosis and embolism; Z85.3 Personal history of malignant neoplasm of breast; Z86.711 Personal history of pulmonary embolism; Z88.8 Allergy status to other drugs, medicaments and biological substances; Z88.0 Allergy status to penicillin; Z88.1 Allergy status to other antibiotic agents; Z90.13 Acquired absence of bilateral breasts and nipples
CPT/HCPCS: 36415; 71045; 71275; 80048; 82550; 82553; 82962; 84484; 85014; 85018; 85025; 85027; 85049; 85520; 85610; 85730; 93005; 93010; 93306; G0378; A9270-GY; J1644; J1815; J2270; J2405; J3010; Q9967

== ENCOUNTER 2019-01-16 07:47 | Inpatient (IN) | payer MEDICARE ==
[2019-01-16] MEDS ORDERED: XOPENEX IH ONE (07:53)
[2019-01-16] MEDS ORDERED: ATROVENT IH ONE (07:53)
[2019-01-16 08:19] LABS: Basophils # (Auto) 0.1 K/mm3 (0.0-0.1); Basophils % (Auto) 0.8 % (0.0-1.8); Eosinophils # (Auto) 0.6 K/mm3 (0.0-0.4); Eosinophils % (Auto) 4.7 % (0.0-4.3); Hematocrit 38.7 % (30.3-42.9); Hemoglobin 12.9 gm/dl (10.1-14.3); Lymphocytes # (Auto) 1.9 K/mm3 (1.2-5.4); Lymphocytes % (Auto) 14.9 % (13.4-35.0); Mean Corpuscular HGB Conc 33 % (30-34); Mean Corpuscular Volume 82 fl (79-97); Monocytes # (Auto) 0.7 K/mm3 (0.0-0.8); Monocytes % (Auto) 5.3 % (0.0-7.3); Platelet Count 164 K/mm3 (140-440); Red Blood Count 4.71 M/mm3 (3.65-5.03)
--- NOTE | 2019-01-16 08:28 | Emergency Department Report ---
HPI - General Time Seen by Provider: 01/16/19 07:52 - HPI HPI: Room 23 The patient is a 53-year-old female presenting with a chief complaint of shortness of breath. The patient states last night she had cold-like symptoms which include a cough as been occasionally productive and chest heaviness this been constant associated with shortness of breath. Patient states approximately 1-2 weeks ago she was diagnosed with PE and started on valgus. Patient denies history of fever. Patient currently gives her chest heaviness score of 9/10. EMS found the patient at home with a room air sat of approximately 80% and the patient is not on home O2. Upon arrival to the ED the patient was found to have faint expiratory wheezing posteriorly and was placed on BiPAP Location: [See above] Duration: [See above] Quality: [See above] Severity: [See above] Modifying factors: [see above] Context: [see above] Mode of transportation: [not driving] ED Past Medical Hx - Past Medical History Previous Medical History?: Yes Hx Hypertension: Yes Hx Diabetes: Yes Hx Deep Vein Thrombosis: Yes Hx of Cancer: Yes (Breast Cancer) Hx Asthma: Yes Hx COPD: Yes (no home O2) Additional medical history: Pulmonary Embolism, lymphedema - Surgical History Hx Coronary Stent: Yes Hx Breast Surgery: Yes (bilateral mastectomy) Additional Surgical History: 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 - Family History Family history: no significant - Social History Smoking Status: Current Every Day Smoker Substance Use Type: None - Medications Home Medications: Home Medications Medication Instructions Recorded Confirmed Last Taken Type AtorvaSTATin 40 mg HS 01/05/19 01/05/19 Unknown History Eliquis 5 mg BID 01/05/19 01/05/19 01/04/19 History Geodon 40 mg PO BID 01/05/19 01/05/19 01/04/19 History Insulin Detemir [Levemir Flextouch] 25 units BID 01/05/19 01/05/19 01/04/19 History Neurontin 900 mg PO TID 01/05/19 01/05/19 01/04/19 History Qvar Redihaler 01/05/19 Unknown History Spiriva Respimat IH PRN 01/05/19 Unknown History Synthroid 150 mg PO DAILY 01/05/19 01/05/19 01/04/19 History Triamterene-Hctz 37.5-25 mg Cp 37.5 mg PO DAILY 01/05/19 01/05/19 01/04/19 Hi story Trileptal 150 mg PO BID 01/05/19 01/05/19 01/04/19 History Vistaril 50 mg PO PRN 01/05/19 01/05/19 01/04/19 History methOCARBAMOL [Robaxin TAB] 750 mg PO TID 01/05/19 01/05/19 Unknown History Apixaban [Eliquis] 10 mg PO Q12HR #60 tablet 01/06/19 Unknown Rx AtorvaSTATin [Lipitor] 40 mg PO QHS tablet 01/06/19 Unknown Rx Gabapentin [Neurontin] 900 mg PO Q8HR capsule 01/06/19 Unknown Rx Insulin Glargine [Lantus VIAL] 25 units SUB-Q BID #10 units 01/06/19 Unknown Rx Levothyroxine [Synthroid] 150 mcg PO DAILY@0600 #30 tablet 01/06/19 Unknown Rx hydrOXYzine PAMOATE [Vistaril] 50 mg PO Q6H PRN capsule 01/06/19 Unknown Rx traMADol [Ultram] 50 mg PO Q6HR PRN #60 tablet 01/06/19 Unknown Rx ED Review of Systems ROS: Stated complaint: WILTON/CHEST PAIN Other details as noted in HPI Constitutional: denies: fever Eyes: denies: eye pain ENT: denies: throat pain Respiratory: cough, shortness of breath Cardiovascular: chest pain Endocrine: no symptoms reported Gastrointestinal: denies: abdominal pain Genitourinary: denies: dysuria Musculoskeletal: denies: back pain Neurological: denies: headache Physical Exam - Physical Exam Vital Signs: Vital Signs 01/16/19 01/16/19 08:02 08:18 Temperature 99.6 F Pulse Rate 81 Respiratory 17 17 Rate Blood Pressure 119/61 Blood Pressure 119/61 [Right] O2 Sat by Pulse 98 98 Oximetry Physical Exam: GENERAL: The patient is well-developed well-nourished female sitting on stretcher exhibiting slightly increased work of breathing. [] HEENT: Normocephalic. Atraumatic. Extraocular motions are intact. Patient has moist mucous membranes. NECK: Supple. Trachea midline CHEST/LUNGS: Faint expiratory wheezing. There is increased work of breathing HEART/CARDIOVASCULAR: Regular. There is no tachycardia. There is no gallop rub or murmur. ABDOMEN: Abdomen is soft, nontender. Patient has normal bowel sounds. There is no abdominal distention. SKIN: There is no rash. There is no diaphoresis. NEURO: The patient is awake, alert, and oriented. The patient is cooperative. The patient has normal speech MUSCULOSKELETAL: There is no evidence of acute injury. ED Course Vital Signs 01/16/19 01/16/19 08:02 08:18 Temperature 99.6 F Pulse Rate 81 Respiratory 17 17 Rate Blood Pressure 119/61 Blood Pressure 119/61 [Right] O2 Sat by Pulse 98 98 Oximetry ED Medical Decision Making - Lab Data Result diagrams: 01/16/19 07:58 01/16/19 07:58 Laboratory Tests 01/16/19 01/16/19 01/16/19 07:58 07:58 07:58 WBC 12.6 H RBC 4.71 Hgb 12.9 Hct 38.7 MCV 82 MCH 27 L MCHC 33 RDW 15.0 Plt Count 164 Lymph % (Auto) 14.9 Daggett % (Auto) 5.3 Eos % (Auto) 4.7 H Baso % (Auto) 0.8 Lymph # 1.9 Daggett # 0.7 Eos # 0.6 H Baso # 0.1 Seg Neutrophils % 74.3 H Seg Neutrophils # 9.4 H PT 12.9 INR 1.00 APTT 25.9 POC ABG pH POC ABG pCO2 POC ABG pO2 POC ABG HCO3 POC ABG Total CO2 POC ABG O2 Sat POC ABG Base Excess VBG pH FiO2 Sodium 138 Potassium 4.5 Chloride 100.8 Carbon Dioxide 27 Anion Gap 15 BUN 13 Creatinine 0.9 Estimated GFR > 60 BUN/Creatinine Ratio 14 Glucose 289 H Calcium 8.9 Total Creatine Kinase 198 H CK-MB (CK-2) 4.3 H CK-MB (CK-2) Rel Index 2.1 Troponin T < 0.010 NT-Pro-B Natriuret Pep 221.9 Blood Type Antibody Screen 01/16/19 01/16/19 01/16/19 08:07 08:07 08:47 WBC RBC Hgb Hct MCV MCH MCHC RDW Plt Count Lymph % (Auto) Daggett % (Auto) Eos % (Auto) Baso % (Auto) Lymph # Daggett # Eos # Baso # Seg Neutrophils % Seg Neutrophils # PT INR APTT POC ABG pH 7.376 POC ABG pCO2 43.6 POC ABG pO2 82 POC ABG HCO3 25.6 POC ABG Total CO2 27 POC ABG O2 Sat 96 POC ABG Base Excess 0 VBG pH 7.353 FiO2 35 Sodium Potassium Chloride Carbon Dioxide Anion Gap BUN Creatinine Estimated GFR BUN/Creatinine Ratio Glucose Calcium Total Creatine Kinase CK-MB (CK-2) CK-MB (CK-2) Rel Index Troponin T NT-Pro-B Natriuret Pep Blood Type O POSITIVE Antibody Screen Negative - EKG Data -: EKG Interpreted by Me EKG shows normal: sinus rhythm Rate: normal - EKG Data When compared to previous EKG there are: previous EKG unavailable Interpretation: other (no ischemic changes seen) - Radiology Data Radiology results: report reviewed (chest x-ray, CT chest), image reviewed (c hest x-ray, CT chest) interpreted by me: Chest x-ray-no focal infiltrates, no pneumothorax [address] [address] XRay Report Signed Patient: KEIRA LOWE MR#: [id number] : 1965 Acct:[id number] Age/Sex: 53 / F ADM Date: 01/16/19 Loc: ED Attending Dr: Ordering Physician: FRIDA MARKS MD Date of Service: 01/16/19 Procedure(s): XR chest 1V ap Accession Number(s): [id number] cc: FRIDA MARKS MD Fluoro Time In Minutes: CHEST 1 VIEW INDICATION: shortness of breath. COMPARISON: 01/05/2019 FINDINGS: Support devices: None. Heart: Within normal limits. Lungs/Pleura: No acute air space or interstitial disease. Additional findings: Subtle linear densities overlie the lower lung zones and axillary soft tissues which presumably represent previous surgical changes/clips, correlate with the patient's history. IMPRESSION: No acute findings. Signer Name: Oscar Walls Jr, MD Signed: 01/16/2019 8:26 AM Workstation Name: [id number] Transcribed By: TTR Dictated By: OSCAR WALLS JR, MD Electronically Authenticated By: OSCAR WALLS JR, MD Signed Date/Time: 01/16/19825 DD/ 4 TD/TT: [address] [place] [address] Cat Scan Report Signed Patient: KEIRA LOWE MR#: [id number] : 1965 Acct:[id number] Age/Sex: 53 / F ADM Date: 01/16/19 Loc: ED Attending Dr: Ordering Physician: FRIDA MARKS MD Date of Service: 01/16/19 Procedure(s): CT angio chest Accession Number(s): [id number] cc: FRIDA MARKS MD CTA CHEST WITH IV CONTRAST INDICATION: Hypoxia. Shortness of breath and chest tightness since last night. History of PE. TECHNIQUE: Axial CT images were obtained through the chest after injection of 100 mL Omnipaque 350 IV contrast. 3 plane MIP reconstructions were produced. All CT scans at this location are performed using CT dose reduction for ALARA by means of automated exposure control. COMPARISON: CTA of the chest from 01/05/2019. FINDINGS: PULMONARY ARTERIES: The pulmonary arteries are well opacified. Clot burden along the left lower lobe has improved. No new PTE is seen. AORTA AND ARTERIES: No acute abnormality. MEDIASTINUM: No mass, lymphadenopathy or other significant abnormality. The heart is normal in size without a pericardial effusion. There is no evidence of right heart strain. The trachea and main bronchi are patent and normal in caliber. LUNGS: There is probable mild atelectasis along the left lower lobe. The lungs are otherwise clear without a suspicious nodule/mass, pneumothorax or pleural effusion. ADDITIONAL FINDINGS: None. UPPER ABDOMEN: No acute findings. BONES: No acute abnormality. There are similar degenerative changes of the spine. IMPRESSION: 1. Interval improvement of PTE burden along the left lower lobe without a new thromboembolism. 2. No acute findings. Signer Name: Roger Rodriguez MD Signed: 01/16/2019 11:16 AM Workstation Name: [id number] Transcribed By: MN Dictated By: Roger Rodriguez MD Electronically Authenticated By: Roger Rodriguez MD Signed Date/Time: 01/16/19 1116 DD/ 1101 TD/TT: - Differential Diagnosis COPD exacerbation, PE, ACS, pericarditis, GERD Critical care attestation.: If time is entered above; I have spent that time in minutes in the direct care of this critically ill patient, excluding procedure time. ED Disposition Clinical Impression: Shortness of breath, COPD exacerbation, Chest heaviness Disposition: OP ADMIT IP TO THIS HOSP Is pt being admited?: Yes Does the pt Need Aspirin: Yes Condition: Fair Instructions: Chronic Obstructive Pulmonary Disease (ED) Referrals: LUCAS SOUTH MD [Primary Care Provider] - 3-5 Days Time of Disposition: 11:38 (hospitalist paged (Dr Langford))
[2019-01-16 08:29] LABS: Partial Thromboplastin Time 25.9 Sec. (24.2-36.6)
--- NOTE | 2019-01-16 08:31 | XRay Report ---
CHEST 1 VIEW INDICATION: shortness of breath. COMPARISON: 01/05/2019 FINDINGS: Support devices: None. Heart: Within normal limits. Lungs/Pleura: No acute air space or interstitial disease. Additional findings: Subtle linear densities overlie the lower lung zones and axillary soft tissues w hich presumably represent previous surgical changes/clips, correlate with the patient's history. IMPRESSION: No acute findings. Signer Name: Oscar Walls Jr, MD Signed: 01/16/2019 8:26 AM Workstation Name: [id number]
[2019-01-16 08:35] LABS: Creatine Kinase MB 4.3 ng/mL (0.0-4.0)
[2019-01-16 08:37] LABS: BUN/Creatinine Ratio 14; Blood Urea Nitrogen 13 mg/dL (7-17); Calcium 8.9 mg/dL (8.4-10.2); Hemolysis Index 6
[2019-01-16] MEDS ORDERED: SOLU-Medrol IV ONE (08:46)
--- NOTE | 2019-01-16 11:20 | Cat Scan Report ---
CTA CHEST WITH IV CONTRAST INDICATION: Hypoxia. Shortness of breath and chest tightness since last night. History of PE. TECHNIQUE: Axial CT images were obtained through the chest after injection of 100 mL Omnipaque 350 IV contrast. 3 plane MIP reconstructions were produced. All CT scans at this location are performed using CT dose reduction for ALARA by means of automated exposure control. COMPARISON: CTA of the chest from 01/05/2019. FINDINGS: PULMONARY ARTERIES: The pulmonary arteries are well opacified. Clot burden along the left lower lobe has improved. No new PTE is seen. AORTA AND ARTERIES: No acute abnormality. MEDIASTINUM: No mass, lymphadenopathy or other significant abnormality. The heart is normal in size w ithout a pericardial effusion. There is no evidence of right heart strain. The trachea and main bronc hi are patent and normal in caliber. LUNGS: There is probable mild atelectasis along the left lower lobe. The lungs are otherwise clear wi thout a suspicious nodule/mass, pneumothorax or pleural effusion. ADDITIONAL FINDINGS: None. UPPER ABDOMEN: No acute findings. BONES: No acute abnormality. There are similar degenerative changes of the spine. IMPRESSION: 1. Interval improvement of PTE burden along the left lower lobe without a new thromboembolism. 2. No acute findings. Signer Name: Roger Rodriguez MD Signed: 01/16/2019 11:16 AM Workstation Name: [id number]
[2019-01-16] MEDS: DUONEB *Not for PRN Use IH SCH ×2 (16:09→19:44)
--- NOTE | 2019-01-16 20:45 | History and Physical Report ---
History of Present Illness Date of examination: 01/16/19 Date of admission: 01/16/19 11:39 Chief complaint: SOB for History of present illness: 53-year-old female presenting with a chief complaint of shortness of breath. The patient states last night she had cold-like symptoms which include a cough productive and chest heaviness this been constant associated with shortness of breath. Patient states approximately 1-2 weeks ago she was diagnosed with PE and started on Eliquis. Patient denies history of fever. Patient currently gives her chest heaviness score of 9/10. EMS found the patient at home with a room air sat of approximately 80% and the patient is not on home O2. Upon arrival to the ED the patient was found to have faint expiratory wheezing po steriorly and was placed on BiPAP. Past Medical History Previous Medical History?: Yes Hypertension: Yes Diabetes Yes Deep Vein Thrombosis: Yes Cancer: Yes (Breast Cancer) Asthma Yes COPD: Yes (no home O2) Additional medical history: Pulmonary Embolism, lymphedema Surgical History Coronary Stent: Yes Breast Surgery: Yes (bilateral mastectomy) Additional Surgical History: Cardiac stent i Family History Family history: no significant Social History Smoking Status: Current Every Day Smoker Substance Use Type: None - Medications Home Medications: Home Medications Medication Instructions Recorded Confirmed Last Taken Type AtorvaSTATin 40 mg HS 01/05/19 01/05/19 Unknown History Eliquis 5 mg BID 01/05/19 01/05/19 01/04/19 History Geodon 40 mg PO BID 01/05/19 01/05/19 01/04/19 History Insulin Detemir [Levemir Flextouch] 25 units BID 01/05/19 01/05/19 01/04/19 History Neurontin 900 mg PO TID 01/05/19 01/05/19 01/04/19 History Qvar Redihaler 01/05/19 Unknown History Spiriva Respimat IH PRN 01/05/19 Unknown History Synthroid 150 mg PO DAILY 01/05/19 01/05/19 01/04/19 History Triamterene-Hctz 37.5-25 mg Cp 37.5 mg PO DAILY 01/05/19 01/05/19 01/04/19 History Trileptal 150 mg PO BID 01/05/19 01/05/19 01/04/19 History Vistaril 50 mg PO PRN 01/05/19 01/05/19 01/04/19 History methOCARBAMOL [Robaxin TAB] 750 mg PO TID 01/05/19 01/05/19 Unknown History Apixaban [Eliquis] 10 mg PO Q12HR #60 tablet 01/06/19 Unknown Rx AtorvaSTATin [Lipitor] 40 mg PO QHS tablet 01/06/19 Unknown Rx Gabapentin [Neurontin] 900 mg PO Q8HR capsule 01/06/19 Unknown Rx Insulin Glargine [Lantus VIAL] 25 units SUB-Q BID #10 units 01/06/19 Unknown Rx Levothyroxine [Synthroid] 150 mcg PO DAILY@0600 #30 tablet 01/06/19 Unknown Rx hydrOXYzine PAMOATE [Vistaril] 50 mg PO Q6H PRN capsule 01/06/19 Unknown Rx traMADol [Ultram] 50 mg PO Q6HR PRN #60 tablet 01/06/19 Unknown Rx Review of Systems ROS: Stated complaint: WILTON/CHEST PAIN Other details as noted in HPI Constitutional: denies: fever Eyes: denies: eye pain ENT: denies: throat pain Respiratory: cough, shortness of breath Cardiovascular: chest pain Endocrine: no symptoms reported Gastrointestinal: denies: abdominal pain Genitourinary: denies: dysuria Musculoskeletal: denies: back pain Neurological: denies: headache 14 point ROS done--otherwise negative Medications and Allergies Allergies Allergy/AdvReac Type Severity Reaction Status Date / Time haloperidol [From Haldol] Allergy Seizure Verified 01/04/19 23:47 lithium Allergy Unknown Verified 01/04/19 23:47 Penicillins Allergy Unknown Verified 01/04/19 23:47 quetiapine [From Seroquel] Allergy Unknown Verified 01/04/19 23:47 vancomycin Allergy Anaphylaxis Verified 01/04/19 23:47 Home Medications Medication Instructions Recorded Confirmed Last Taken Type methOCARBAMOL [Robaxin TAB] 750 mg PO BID 01/05/19 01/16/19 Unknown History ALBUTEROL NEB's [Proventil 0.083% 2.5 mg IH PRN PRN 01/16/19 01/16/19 Unknown History NEBS] Apixaban [Eliquis] 5 mg PO BID 01/16/19 01/16/19 Unknown History Beclomethasone Dipropionate [Qvar] 8.7 gm IH DAILY 01/16/19 01/16/19 1 Day Ago History ~01/15/19 Gabapentin [Neurontin] 900 mg PO TID 01/16/19 01/16/19 1 Day Ago History ~01/15/19 Insulin Aspart [NovoLOG Flexpen] 25 units SUB-Q AC 01/16/19 01/16/19 1 Day Ago History ~01/15/19 Insulin Glargine,Hum.rec.anlog 20 units SUB-Q BID 01/16/19 01/16/19 1 Day Ago History [Lantus Solostar] ~01/15/19 Ipratropium/Albuterol Sulfate 4 gm IH BID 01/16/19 01/16/19 1 Day Ago History [Combivent Respimat] ~01/15/19 Levothyroxine [Synthroid] 150 mcg PO QAM 01/16/19 01/16/19 1 Day Ago History ~01/15/19 Losartan-Hctz 100-25 mg Tab 100 mg PO DAILY 01/16/19 01/16/19 1 Day Ago History ~01/15/19 OXcarbazepine [Trileptal] 150 mg PO DAILY 01/16/19 01/16/19 1 Day Ago History ~01/15/19 OXcarbazepine [Trileptal] 300 mg PO HS 01/16/19 01/16/19 2 Days Ago History ~01/14/19 Paliperidone [Invega] 6 mg PO QDAY 01/16/19 01/16/19 Unknown History Propranolol [Inderal] 10 mg PO TID 01/16/19 01/16/19 Unknown History hydrOXYzine PAMOATE [Vistaril] 50 mg PO PRN PRN 01/16/19 01/16/19 3 Days Ago History ~01/13/19 traMADol [Ultram 50 MG tab] 50 mg PO PRN PRN 01/16/19 01/16/19 3 Days Ago History ~01/13/19 traZODone [Desyrel] 50 mg PO QHS 01/16/19 01/16/19 Unknown History Active Meds: Active Medications Albuterol/Ipratropium (Duoneb *Not For Prn Use*) 1 ampul IH QIDRT [facility] Last Admin: 01/16/19 19:44 Dose: 1 ampul Documented by: Exam - Constitutional Vitals: Temp Pulse Resp BP Pulse Ox 985 F H 75 20 129/64 95 01/16/19 20:10 01/16/19 20:09 01/16/19 20:09 01/16/19 20:09 01/16/19 20:09 General appearance: Present: severe distress, well-nourished - EENT Eyes: Present: PERRL ENT: hearing intact, clear oral mucosa - Neck Neck: Present: supple, normal ROM - Respiratory Respiratory effort: normal Respiratory: bilateral: diminished, rhonchi, wheezing - Cardiovascular Heart rate: 98 Rhythm: regular Heart Sounds: Present: S1 & S2. Absent: rub, click - Extremities Extremities: pulses symmetrical, No edema Peripheral Pulses: within normal limits - Abdominal General gastrointestinal: Present: soft, non-tender, non-distended, normal bowel sounds Female genitourinary: Present: normal - Rectal Rectal Exam: deferred - Integumentary Integumentary: Present: clear, warm, dry - Musculoskeletal Musculoskeletal: gait normal, strength equal bilaterally - Psychiatric Psychiatric: appropriate mood/affect, intact judgment & insight - Neurologic Neurologic: CNII-XII intact, moves all extremities - Allied Health Allied health notes reviewed: nursing, case management Results - Labs CBC & Chem 7: 01/17/19 03:52 01/17/19 03:52 Labs: Laboratory Last Values WBC 12.6 K/mm3 (4.5-11.0) H 01/16/19 07:58 RBC 4.71 M/mm3 (3.65-5.03) 01/16/19 07:58 Hgb 12.9 gm/dl (10.1-14.3) 01/16/19 07:58 Hct 38.7 % (30.3-42.9) 01/16/19 07:58 MCV 82 fl (79-97) 01/16/19 07:58 MCH 27 pg (28-32) L 01/16/19 07:58 MCHC 33 % (30-34) 01/16/19 07:58 RDW 15.0 % (13.2-15.2) 01/16/19 07:58 Plt Count 164 K/mm3 (140-440) 01/16/19 07:58 Lymph % (Auto) 14.9 % (13.4-35.0) 01/16/19 07:58 [place]racken % (Auto) 5.3 % (0.0-7.3) 01/16/19 07:58 Eos % (Auto) 4.7 % (0.0-4.3) H 01/16/19 07:58 Baso % (Auto) 0.8 % (0.0-1.8) 01/16/19 07:58 Lymph # 1.9 K/mm3 (1.2-5.4) 01/16/19 07:58 [place]racken # 0.7 K/mm3 (0.0-0.8) 01/16/19 07:58 Eos # 0.6 K/mm3 (0.0-0.4) H 01/16/19 07:58 Baso # 0.1 K/mm3 (0.0-0.1) 01/16/19 07:58 Seg Neutrophils % 74.3 % (40.0-70.0) H 01/16/19 07:58 Seg Neutrophils # 9.4 K/mm3 (1.8-7.7) H 01/16/19 07:58 PT 12.9 Sec. (12.2-14.9) 01/16/19 07:58 INR 1.00 (0.87-1.13) 01/16/19 07:58 APTT 25.9 Sec. (24.2-36.6) 01/16/19 07:58 POC ABG pH 7.376 (7.35-7.45) 01/16/19 08:47 POC ABG pCO2 43.6 (35-45) 01/16/19 08:47 POC ABG pO2 82 (80-105) 01/16/19 08:47 POC ABG HCO3 25.6 (22-26 mml/L) 01/16/19 08:47 POC ABG Total CO2 27 (23-27mmol/L) 01/16/19 08:47 POC ABG O2 Sat 96 01/16/19 08:47 POC ABG Base Excess 0 ((-2) - (+3)mmol/L) 01/16/19 08:47 VBG pH 7.353 (7.320-7.420) 01/16/19 08:07 35 % 01/16/19 08:47 Sodium 138 mmol/L (137-145) 01/16/19 07:58 Potassium 4.5 mmol/L (3.6-5.0) 01/16/19 07:58 Chloride 100.8 mmol/L (98-107) 01/16/19 07:58 Carbon Dioxide 27 mmol/L (22-30) 01/16/19 07:58 15 mmol/L 01/16/19 07:58 BUN 13 mg/dL (7-17) 01/16/19 07:58 0.9 mg/dL (0.7-1.2) 01/16/19 07:58 Estimated GFR > 60 ml/min 01/16/19 07:58 14 % 01/16/19 07:58 Glucose 289 mg/dL (65-100) H 01/16/19 07:58 Calcium 8.9 mg/dL (8.4-10.2) 01/16/19 07:58 198 units/L (30-135) H 01/16/19 07:58 CK-MB (CK-2) 4.3 ng/mL (0.0-4.0) H 01/16/19 07:58 CK-MB (CK-2) Rel Index 2.1 (0-4) 01/16/19 07:58 < 0.010 ng/mL (0.00-0.029) 01/16/19 07:58 NT-Pro-B Natriuret Pep 221.9 pg/mL (0-900) 01/16/19 07:58 Blood Type O POSITIVE 01/16/19 08:07 Antibody Screen Negative 01/16/19 08:07 - Imaging and Cardiology EKG: report reviewed Chest x-ray: report reviewed Assessment and Plan Advance Directives: Yes (Full code) VTE prophylaxis?: Chemical Plan of care discussed with patient/family: Yes - Patient Problems (1) Acute respiratory failure with hypoxia Current Visit: Yes Status: Acute Plan to address problem: Patient on high flow O2 May need Home o2 Cont Neb treatments IV Solumedrol and IV abx (2) COPD exacerbation Current Visit: Yes Status: Acute Plan to address problem: Patient on high flow O2 May need Home o2 Cont Neb treatments IV Solumedrol and IV abx (3) Pulmonary emboli Current Visit: No Status: Chronic Qualifiers: Acute cor pulmonale presence: without acute cor pulmonale Plan to address problem: On Eliquis Old PE (4) IDDM (insulin dependent diabetes mellitus) Current Visit: Yes Status: Chronic Plan to address problem: Cont Home insulin and coverage (5) HTN (hypertension) Current Visit: Yes Status: Chronic Qualifiers: Hypertension type: essential hypertension Qualified Code(s): I10 - Essential (primary) hypertension Plan to address problem: Cont antihypertensives (6) Hypothyroidism (acquired) Current Visit: Yes Status: Chronic Plan to address problem: COnt synthyroid and Check TSH (7) HLD (hyperlipidemia) Current Visit: Yes Status: Chronic Qualifiers: Hyperlipidemia type: mixed hyperlipidemia Qualified Code(s): E78.2 - Mixed hyperlipidemia Plan to address problem: Cont statins (8) Peripheral neuropathy Current Visit: Yes Status: Chronic Qualifiers: Peripheral neuropathy type: polyneuropathy, unspecified Qualified Code(s): G62.9 - Polyneuropathy, unspecified Plan to address problem: Cont Gabapentin (9) DVT prophylaxis Current Visit: Yes Status: Acute Plan to address problem: On Lovenox and GI prophylaxis
[2019-01-16] MEDS ORDERED: PROVENTIL IH PRN ×3 (20:46→20:56)
[2019-01-16] MEDS ORDERED: VISTARIL PO PRN (20:46)
[2019-01-16] MEDS ORDERED: ZOFRAN IV PRN (20:51)
[2019-01-16] MEDS ORDERED: PERCOCET 5/325 PO PRN (20:51)
[2019-01-16] MEDS ORDERED: SODIUM CHLORIDE FLUSH SYRINGE 10 ML IV PRN (20:51)
[2019-01-16] MEDS ORDERED: REGLAN IV PRN (20:51)
[2019-01-16] MEDS ORDERED: TYLENOL PO PRN (20:51)
[2019-01-16] MEDS ORDERED: DILAUDID IV PRN (20:51)
[2019-01-16] MEDS ORDERED: LOSARTAN HCTZ PO SCH (21:00)
[2019-01-16] MEDS ORDERED: NON-FORMULARY (Beclomethasone Dipropionate [Qvar] 8.7 GM) IH SCH (21:00)
[2019-01-16] MEDS ORDERED: NON-FORMULARY (Paliperidone [Invega] 6 MG) PO SCH (21:00)
[2019-01-16] MEDS ORDERED: D50W (25GM) Syringe IV PRN (21:45)
[2019-01-16] MEDS: SOLU-Medrol IV SCH (21:58)
[2019-01-16] MEDS: TRILEPTAL PO SCH (21:58)
[2019-01-16] MEDS: DESYREL PO SCH (21:58)
[2019-01-16] MEDS: ELIQUIS PO SCH (21:58)
[2019-01-16] MEDS: PEPCID IV SCH (21:59)
[2019-01-16] MEDS: SODIUM CHLORIDE FLUSH SYRINGE 10 ML IV SCH (21:59)
[2019-01-16] MEDS: LEVAQUIN 750MG/150ML 750 MG/150 ML BAG IV SCH (21:59)
[2019-01-16] MEDS ORDERED: ALBUTEROL SULFATE IH SCH (22:00)
[2019-01-16] MEDS ORDERED: IPRATROPIUM IH SCH (22:00)
[2019-01-16] MEDS ORDERED: NON-FORMULARY (Insulin Glargine,Hum.Rec.Anlog [Lantus Solostar] 20 UNITS) SUB-Q SCH (22:00)
[2019-01-16] MEDS: LANTUS SUB-Q SCH (22:18)
[2019-01-16] MEDS: ROBAXIN PO SCH (22:18)
[2019-01-16] MEDS: HumaLOG SUB-Q SCH (22:19)
[2019-01-16] MEDS: INVEGA PO SCH (22:30)
[2019-01-16] MEDS: NEURONTIN PO SCH (23:36)
[2019-01-16] MEDS: ULTRAM PO PRN (23:36)
[2019-01-17] MEDS ORDERED: HumuLIN R SUB-Q ONE ×3 (00:25→23:26)
[2019-01-17 05:21] LABS: Basophils % (Auto) 0.3 % (0.0-1.8); Hematocrit 37.9 % (30.3-42.9); Hemoglobin 12.6 gm/dl (10.1-14.3); Lymphocytes # (Auto) 1.1 K/mm3 (1.2-5.4); Lymphocytes % (Auto) 12.7 % (13.4-35.0); Mean Corpuscular HGB Conc 33 % (30-34); Mean Corpuscular Volume 83 fl (79-97); Monocytes # (Auto) 0.2 K/mm3 (0.0-0.8); Monocytes % (Auto) 2.7 % (0.0-7.3); Platelet Count 156 K/mm3 (140-440); Red Blood Count 4.59 M/mm3 (3.65-5.03); Red Cell Distribution Width 15.2 % (13.2-15.2)
[2019-01-17 06:16] LABS: Alanine Aminotransferase 21 units/L (7-56); Albumin 3.5 g/dL (3.9-5); BUN/Creatinine Ratio 20; Blood Urea Nitrogen 16 mg/dL (7-17); Calcium 9.1 mg/dL (8.4-10.2); Hemolysis Index 18
[2019-01-17] MEDS: SYNTHROID PO SCH (06:45)
[2019-01-17] MEDS: SOLU-Medrol IV SCH ×3 (06:50→21:20)
[2019-01-17] MEDS ORDERED: INSULIN ASPART 25 UNIT SUB-Q SCH (07:30)
[2019-01-17] MEDS ORDERED: HumaLOG SUB-Q SCH (07:30)
[2019-01-17] MEDS: PULMICORT IH SCH ×2 (07:40→21:04)
[2019-01-17] MEDS: DUONEB *Not for PRN Use IH SCH ×4 (07:40→21:04)
[2019-01-17] MEDS ORDERED: NON-FORMULARY (Gabapentin [Neurontin] 900 MG) PO SCH (08:00)
--- NOTE | 2019-01-17 09:38 | Progress Note ---
Assessment and Plan Assessment and plan: Patient is a 53 yo woman with a history of tobacco dependent, breast cancer s/p bilateral mastectomies, asthma, chronic hypoxic respiratory failure on home o2 due to end-stage COPD, type 2 dm, hypertension and recurrent PE/DVT who presented with SOB. * pCXR IMPRESSION: No acute findings. * CTA chest COMPARISON: CTA of the chest from 01/05/2019. FINDINGS: PULMONARY ARTERIES: The pulmonary arteries are well opacified. Clot burden along the left lower lobe has improved. No new PTE is seen. AORTA AND ARTERIES: No acute abnormality. MEDIASTINUM: No mass, lymphadenopathy or other significant abnormality. The heart is normal in size without a pericardial effusion. There is no evidence of right heart strain. The trachea and main bronchi are patent and normal in caliber. LUNGS: There is probable mild atelectasis along the left lower lobe. The lungs are otherwise clear without a suspicious nodule/mass, pneumothorax or pleural effusion. ADDITIONAL FINDINGS: None. UPPER ABDOMEN: No acute findings. BONES: No acute abnormality. There are similar degenerative changes of the spine. IMPRESSION: 1. Interval improvement of PTE burden along the left lower lobe without a new thromboembolism. 2. No acute findings. (1) Acute respiratory failure with hypoxia Current Visit: Yes Status: Acute Plan to address problem: Patient on high flow O2 May need Home o2 Cont Neb treatments IV Solumedrol and IV abx (2) COPD exacerbation Current Visit: Yes Status: Acute Plan to address problem: Patient on high flow O2 May need Home o2 Cont Neb treatments IV Solumedrol and IV abx (3) Pulmonary emboli Current Visit: No Status: Chronic Qualifiers: Acute cor pulmonale presence: without acute cor pulmonale Plan to address problem: On Eliquis Old PE (4) IDDM (insulin dependent diabetes mellitus) Current Visit: Yes Status: Chronic Plan to address problem: Cont Home insulin and coverage (5) HTN (hypertension) Current Visit: Yes Status: Chronic Qualifiers: Hypertension type: essential hypertension Qualified Code(s): I10 - Essential (primary) hypertension Plan to address problem: Cont antihypertensives (6) Hypothyroidism (acquired) Current Visit: Yes Status: Chronic Plan to address problem: COnt synthyroid and Check TSH (7) HLD (hyperlipidemia) Current Visit: Yes Status: Chronic Qualifiers: Hyperlipidemia type: mixed hyperlipidemia Qualified Code(s): E78.2 - Mixed hyperlipidemia Plan to address problem: Cont statins (8) Peripheral neuropathy Current Visit: Yes Status: Chronic Qualifiers: Peripheral neuropathy type: polyneuropathy, unspecified Qualified Code(s): G62.9 - Polyneuropathy, unspecified Plan to address problem: Cont Gabapentin (9) DVT prophylaxis Current Visit: Yes Status: Acute Plan to address problem: On Lovenox and GI prophylaxis History Interval history: Patient was seen and examined. Follow-up on current diagnosis of COPD. No overnight events reported to me. Patient denies any chest pain, shortness breath, nausea/vomiting or severe headaches. Imaging, nursing note, chart, labs and old chart reviewed. Discussed with patient. Hospitalist Physical - Physical exam Narrative exam: Gen: WDWN, NAD, Awake, Alert, Orientated HEENT: NCAT, EOMI, PERRL, OP Clear Neck: supple, no adenopathy, no thyromegaly, no JVD CVS/Heart: RRR, normal S1S2, pulses present bilaterally Chest/Lungs: CTA B, Symmetrical chest expansion, good air entry bilaterally GI/Abdomen: soft, NTND, good bowel sounds, no guarding or rebound /Bladder: no suprapubic tenderness, no CVA or paraspinal tenderness Extermity/Skin: no c/c/e, no obvious rash MSK: FROM x 4 Neuro: CN 2-12 grossly intact, no new focal deficits Psych: calm - Constitutional Vitals: Temp Pulse Resp BP Pulse Ox 97.5 F L 59 L 16 100/51 97 01/17/19 08:10 01/17/19 08:10 01/17/19 08:10 01/17/19 08:10 01/17/19 08:10 General appearance: Present: well-nourished Results - Labs CBC & Chem 7: 01/17/19 03:52 01/17/19 03:52 Labs: Laboratory Last Values WBC 9.0 K/mm3 (4.5-11.0) 01/17/19 03:52 RBC 4.59 M/mm3 (3.65-5.03) 01/17/19 03:52 Hgb 12.6 gm/dl (10.1-14.3) 01/17/19 03:52 Hct 37.9 % (30.3-42.9) 01/17/19 03:52 MCV 83 fl (79-97) 01/17/19 03:52 MCH 28 pg (28-32) 01/17/19 03:52 MCHC 33 % (30-34) 01/17/19 03:52 RDW 15.2 % (13.2-15.2) 01/17/19 03:52 Plt Count 156 K/mm3 (140-440) 01/17/19 03:52 Lymph % (Auto) 12.7 % (13.4-35.0) L 01/17/19 03:52 [place] % (Auto) 2.7 % (0.0-7.3) 01/17/19 03:52 Eos % (Auto) 0.0 % (0.0-4.3) 01/17/19 03:52 Baso % (Auto) 0.3 % (0.0-1.8) 01/17/19 03:52 Lymph # 1.1 K/mm3 (1.2-5.4) L 01/17/19 03:52 [place] # 0.2 K/mm3 (0.0-0.8) 01/17/19 03:52 Eos # 0.0 K/mm3 (0.0-0.4) 01/17/19 03:52 Baso # 0.0 K/mm3 (0.0-0.1) 01/17/19 03:52 Seg Neutrophils % 84.3 % (40.0-70.0) H 01/17/19 03:52 Seg Neutrophils # 7.5 K/mm3 (1.8-7.7) 01/17/19 03:52 PT 12.9 Sec. (12.2-14.9) 01/16/19 07:58 INR 1.00 (0.87-1.13) 01/16/19 07:58 APTT 25.9 Sec. (24.2-36.6) 01/16/19 07:58 POC ABG pH 7.376 (7.35-7.45) 01/16/19 08:47 POC ABG pCO2 43.6 (35-45) 01/16/19 08:47 POC ABG pO2 82 (80-105) 01/16/19 08:47 POC ABG HCO3 25.6 (22-26 mml/L) 01/16/19 08:47 POC ABG Total CO2 27 (23-27mmol/L) 01/16/19 08:47 POC ABG O2 Sat 96 01/16/19 08:47 POC ABG Base Excess 0 ((-2) - (+3)mmol/L) 01/16/19 08:47 VBG pH 7.353 (7.320-7.420) 01/16/19 08:07 35 % 01/16/19 08:47 Sodium 132 mmol/L (137-145) L 01/17/19 03:52 Potassium 4.6 mmol/L (3.6-5.0) 01/17/19 03:52 Chloride 94.8 mmol/L (98-107) L 01/17/19 03:52 Carbon Dioxide 23 mmol/L (22-30) 01/17/19 03:52 19 mmol/L 01/17/19 03:52 BUN 16 mg/dL (7-17) 01/17/19 03:52 0.8 mg/dL (0.7-1.2) 01/17/19 03:52 Estimated GFR > 60 ml/min 01/17/19 03:52 20 % 01/17/19 03:52 Glucose 576 mg/dL (65-100) H* 01/17/19 03:52 POC Glucose 421 (70-105) H 01/17/19 08:18 11.1 % (4-6) H 01/16/19 07:58 Calcium 9.1 mg/dL (8.4-10.2) 01/17/19 03:52 < 0.20 mg/dL (0.1-1.2) 01/17/19 03:52 AST 18 units/L (5-40) 01/17/19 03:52 ALT 21 units/L (7-56) 01/17/19 03:52 157 units/L (35-129) H 01/17/19 03:52 198 units/L (30-135) H 01/16/19 07:58 CK-MB (CK-2) 4.3 ng/mL (0.0-4.0) H 01/16/19 07:58 CK-MB (CK-2) Rel Index 2.1 (0-4) 08/02/19 07:58 < 0.010 ng/mL (0.00-0.029) 01/16/19 07:58 NT-Pro-B Natriuret Pep 221.9 pg/mL (0-900) 01/16/19 07:58 7.4 g/dL (6.3-8.2) 01/17/19 03:52 3.5 g/dL (3.9-5) L 01/17/19 03:52 0.9 % 01/17/19 03:52 TSH 30.770 mlU/mL (0.270-4.200) H 01/17/19 08:31 Blood Type O POSITIVE 01/16/19 08:07 Antibody Screen Negative 01/16/19 08:07 Active Medications - Current Medications Current Medications: Generic Name Dose Route Start Last Admin Trade Name Freq PRN Reason Stop Dose Admin Acetaminophen 650 mg 01/16/19 20:51 Tylenol PO Q4H PRN Pain MILD(1-3)/Fever >100.5/[place] Albuterol 2.5 mg 01/16/19 20:54 Proventil IH Q4HRT PRN Shortness Of Breath Albuterol/Ipratropium 1 ampul 01/17/19 08:00 01/17/19 07:40 Duoneb *Not For Prn Use* IH 1 ampul QIDRT MALA Administration Apixaban 5 mg 01/16/19 22:00 01/16/19 21:58 Eliquis PO 5 mg BID MALA Administration Protocol Budesonide 0.5 mg 01/17/19 08:00 01/17/19 07:40 Pulmicort IH 0.5 mg Q12HRT MALA Administration Dextrose 50 ml 01/16/19 21:45 D50w (25gm) Syringe IV PRN PRN Hypoglycemia Famotidine 20 mg 01/16/19 22:00 01/16/19 21:59 Pepcid IV 20 mg BID MALA Administration Gabapentin 900 mg 01/16/19 23:00 01/16/19 23:36 Neurontin PO 900 mg TID MALA Administration Hydrochlorothiazide 25 mg 01/17/19 10:00 Hctz PO QDAY MALA Hydromorphone HCl 0.5 mg 01/16/19 20:51 Dilaudid IV Q3H PRN Pain , Severe (7-10) Hydroxyzine Pamoate 50 mg 01/16/19 20:46 Vistaril PO DAILY PRN Anxiety Levofloxacin/Dextrose 750 mg in 150 mls @ 100 mls/hr 01/16/19 21:00 01/16/19 21:59 Levaquin 750mg/150ml IV 100 mls/hr Q24H MALA Administration Protocol Insulin Glargine 20 units 01/16/19 22:00 01/16/19 22:18 Lantus SUB-Q 20 units BID MALA Administration Insulin Human Lispro 0 unit 01/16/19 22:00 01/16/19 22:19 Humalog SUB-Q 10 unit ACHS MALA Administration Protocol Insulin Human Lispro 25 unit 01/17/19 07:30 Humalog SUB-Q AC MALA Levothyroxine Sodium 150 mcg 01/17/19 06:00 01/17/19 06:45 Synthroid PO 150 mcg QAM@0600 MALA Administration Losartan Potassium 100 mg 01/17/19 10:00 Cozaar PO QDAY MALA Methocarbamol 750 mg 01/16/19 22:00 01/16/19 22:18 Robaxin PO 750 mg BID MALA Administration Methylprednisolone Sodium Succinate 80 mg 01/16/19 22:00 01/17/19 06:50 Solu-Medrol IV 80 mg Q8HR MALA Administration Metoclopramide HCl 10 mg 01/16/19 20:51 Reglan IV Q6H PRN Nausea And Vomiting Ondansetron HCl 4 mg 01/16/19 20:51 Zofran IV Q8H PRN Nausea And Vomiting Oxcarbazepine 150 mg 01/17/19 10:00 Trileptal PO DAILY MALA Oxcarbazepine 300 mg 01/16/19 22:00 01/16/19 21:58 Trileptal PO 300 mg HS MALA Administration Oxycodone/Acetaminophen 1 tab 01/16/19 20:51 Percocet 5/325 PO Q6H PRN Pain, Moderate (4-6) Paliperidone 6 mg 01/16/19 21:00 01/16/19 22:30 Invega PO 6 mg QDAY MALA Administration Sodium Chloride 10 ml 01/16/19 22:00 01/16/19 21:59 Sodium Chloride Flush Syringe 10 Ml IV 10 ml BID MALA Administration Sodium Chloride 10 ml 01/16/19 20:51 Sodium Chloride Flush Syringe 10 Ml IV PRN PRN LINE FLUSH Tramadol HCl 50 mg 01/16/19 20:46 01/16/19 23:36 Ultram PO 50 mg BID PRN Administration Pain, Moderate (4-6) Trazodone HCl 50 mg 01/16/19 22:00 01/16/19 21:58 Desyrel PO 50 mg QHS MALA Administration
[2019-01-17] MEDS: ROBAXIN PO SCH ×2 (10:40→21:19)
[2019-01-17] MEDS: LANTUS SUB-Q SCH ×2 (10:40→22:28)
[2019-01-17] MEDS: COZAAR PO SCH (10:40)
[2019-01-17] MEDS: NEURONTIN PO SCH ×3 (10:41→21:19)
[2019-01-17] MEDS: HCTZ PO SCH (10:41)
[2019-01-17] MEDS: HumaLOG SUB-Q SCH ×7 (10:41→22:29)
[2019-01-17] MEDS: TRILEPTAL PO SCH ×2 (10:41→21:20)
[2019-01-17] MEDS: ELIQUIS PO SCH ×2 (10:42→21:19)
[2019-01-17] MEDS: SODIUM CHLORIDE FLUSH SYRINGE 10 ML IV SCH ×2 (10:43→21:21)
[2019-01-17] MEDS: PEPCID IV SCH ×2 (10:43→21:20)
[2019-01-17] MEDS: INVEGA PO SCH (10:43)
--- NOTE | 2019-01-17 14:19 | Consultation ---
History of Present Illness Consult date: 01/17/19 Reason for consult: dyspnea, cough, pulmonary embolism History of present illness: PULMONARY AND CRITICAL CARE CONSULTATION DR. ELIAS THANK YOU FOR ASKING US TO PARTICIPATE IN THE CARE OF THIS PATIENT. 53-year-old female presenting with a chief complaint of shortness of breath. The patient states last night she had cold-like symptoms which include a cough productive and chest heaviness this been constant associated with shortness of breath. Patient states approximately 1-2 weeks ago she was diagnosed with PE and started on Eliquis. Patient denies history of fever. Patient currently giv es her chest heaviness score of 9/10. EMS found the patient at home with a room air sat of approximately 80% and the patient is not on home O2. Upon arrival to the ED the patient was found to have faint expiratory wheezing posteriorly and was placed on BiPAP. Patient presently resting on 3 litres o2. Patient still has diffuse wheezing and rhonchi Patient says history of asthma for long time. Patient also has history of hypertension and diabetes. History of breast CA and Bilateral mastectomy. Patient has history of pulmonary embolism. Patient is on Apixaban. Patient also hs history of hypothyroidism. Patient has slight history of smoking. Smoked few cigaretts 2 years. Counselled to stop smoking. History of alcohol and drug abuse. 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 Allergic to multiple medications, [place], Haloperdol, pencillins,quetiapine, v ancomycin. Past History Past Medical History: diabetes, hypertension, other (History of breast CA and Bilateral mastectomy.) Medications and Allergies Allergies Allergy/AdvReac Type Severity Reaction Status Date / Time haloperidol [From Haldol] Allergy Seizure Verified 01/04/19 23:47 lithium Allergy Unknown Verified 01/04/19 23:47 Penicillins Allergy Unknown Verified 01/04/19 23:47 quetiapine [From Seroquel] Allergy Unknown Verified 01/04/19 23:47 vancomycin Allergy Anaphylaxis Verified 01/04/19 23:47 Home Medications Medication Instructions Recorded Confirmed Last Taken Type methOCARBAMOL [Robaxin TAB] 750 mg PO BID 01/05/19 01/16/19 Unknown History ALBUTEROL NEB's [Proventil 0.083% 2.5 mg IH PRN PRN 01/16/19 01/16/19 Unknown History NEBS] Apixaban [Eliquis] 5 mg PO BID 01/16/19 01/16/19 Unknown History Beclomethasone Dipropionate [Qvar] 8.7 gm IH DAILY 01/16/19 01/16/19 1 Day Ago History ~01/15/19 Gabapentin [Neurontin] 900 mg PO TID 01/16/19 01/16/19 1 Day Ago History ~01/15/19 Insulin Aspart [NovoLOG Flexpen] 25 units SUB-Q AC 01/16/19 01/16/19 1 Day Ago History ~01/15/19 Insulin Glargine,Hum.rec.anlog 20 units SUB-Q BID 01/16/19 01/16/19 1 Day Ago History [Lantus Solostar] ~01/15/19 Ipratropium/Albuterol Sulfate 4 gm IH BID 01/16/19 01/16/19 1 Day Ago History [Combivent Respimat] ~01/15/19 Levothyroxine [Synthroid] 150 mcg PO QAM 01/16/19 01/16/19 1 Day Ago History ~01/15/19 Losartan-Hctz 100-25 mg Tab 100 mg PO DAILY 01/16/19 01/16/19 1 Day Ago History ~01/15/19 OXcarbazepine [Trileptal] 150 mg PO DAILY 01/16/19 01/16/19 1 Day Ago History ~01/15/19 OXcarbazepine [Trileptal] 300 mg PO HS 01/16/19 01/16/19 2 Days Ago History ~01/14/19 Paliperidone [Invega] 6 mg PO QDAY 01/16/19 01/16/19 Unknown History Propranolol [Inderal] 10 mg PO TID 01/16/19 01/16/19 Unknown History hydrOXYzine PAMOATE [Vistaril] 50 mg PO PRN PRN 01/16/19 01/16/19 3 Days Ago History ~01/13/19 traMADol [Ultram 50 MG tab] 50 mg PO PRN PRN 01/16/19 01/16/19 3 Days Ago History ~01/13/19 traZODone [Desyrel] 50 mg PO QHS 01/16/19 01/16/19 Unknown History Active Meds: Active Medications Acetaminophen (Tylenol) 650 mg PO Q4H PRN PRN Reason: Pain MILD(1-3)/Fever >100.5/[place] Albuterol (Proventil) 2.5 mg IH Q4HRT PRN PRN Reason: Shortness Of Breath Albuterol/Ipratropium (Duoneb *Not For Prn Use*) 1 ampul IH QIDRT [facility] Last Admin: 01/17/19 11:18 Dose: Not Given Documented by: Apixaban (Eliquis) 5 mg PO BID [facility]; Protocol Last Admin: 01/17/19 10:42 Dose: 5 mg Documented by: Budesonide (Pulmicort) 0.5 mg IH Q12HRT [facility] Last Admin: 01/17/19 07:40 Dose: 0.5 mg Documented by: Dextrose (D50w (25gm) Syringe) 50 ml IV PRN PRN PRN Reason: Hypoglycemia Famotidine (Pepcid) 20 mg IV BID [facility] Last Admin: 01/17/19 10:43 Dose: 20 mg Documented by: Gabapentin (Neurontin) 900 mg PO TID [facility] Last Admin: 01/17/19 10:41 Dose: 900 mg Documented by: Hydrochlorothiazide (Hctz) 25 mg PO QDAY [facility] Last Admin: 01/17/19 10:41 Dose: 25 mg Documented by: Hydromorphone HCl (Dilaudid) 0.5 mg IV Q3H PRN PRN Reason: Pain , Severe (7-10) Hydroxyzine Pamoate (Vistaril) 50 mg PO DAILY PRN PRN Reason: Anxiety Levofloxacin/Dextrose (Levaquin 750mg/150ml) 750 mg in 150 mls @ 100 mls/hr IV Q24H [facility]; Protocol Last Admin: 01/16/19 21:59 Dose: 100 mls/hr Documented by: Insulin Glargine (Lantus) 20 units SUB-Q BID [facility] Last Admin: 01/17/19 10:40 Dose: 20 units Documented by: Insulin Human Lispro (Humalog) 0 unit SUB-Q ACHS [facility]; Protocol Last Admin: 01/17/19 12:45 Dose: 10 unit Documented by: Insulin Human Lispro (Humalog) 25 unit SUB-Q AC [facility] Last Admin: 01/17/19 12:46 Dose: 25 unit Documented by: Levothyroxine Sodium (Synthroid) 150 mcg PO QAM@0600 [facility] Last Admin: 01/17/19 06:45 Dose: 150 mcg Documented by: Losartan Potassium (Cozaar) 100 mg PO QDAY [facility] Last Admin: 01/17/19 10:40 Dose: 100 mg Documented by: Methocarbamol (Robaxin) 750 mg PO BID [facility] Last Admin: 01/17/19 10:40 Dose: 750 mg Documented by: Methylprednisolone Sodium Succinate (Solu-Medrol) 80 mg IV Q8HR [facility] Last Admin: 01/17/19 06:50 Dose: 80 mg Documented by: Metoclopramide HCl (Reglan) 10 mg IV Q6H PRN PRN Reason: Nausea And Vomiting Ondansetron HCl (Zofran) 4 mg IV Q8H PRN PRN Reason: Nausea And Vomiting Oxcarbazepine (Trileptal) 150 mg PO DAILY [facility] Last Admin: 01/17/19 10:41 Dose: 150 mg Documented by: Oxcarbazepine (Trileptal) 300 mg PO [facility] Last Admin: 01/16/19 21:58 Dose: 300 mg Documented by: Oxycodone/Acetaminophen (Percocet 5/325) 1 tab PO Q6H PRN PRN Reason: Pain, Moderate (4-6) Paliperidone (Invega) 6 mg PO QDAY [facility] Last Admin: 01/17/19 10:43 Dose: 6 mg Documented by: Sodium Chloride (Sodium Chloride Flush Syringe 10 Ml) 10 ml IV BID [facility] Last Admin: 01/17/19 10:43 Dose: 10 ml Documented by: Sodium Chloride (Sodium Chloride Flush Syringe 10 Ml) 10 ml IV PRN PRN PRN Reason: LINE FLUSH Tramadol HCl (Ultram) 50 mg PO BID PRN PRN Reason: Pain, Moderate (4-6) Last Admin: 01/16/19 23:36 Dose: 50 mg Documented by: Trazodone HCl (Desyrel) 50 mg PO QHS [facility] Last Admin: 01/16/19 21:58 Dose: 50 mg Documented by: Review of Systems All systems: negative Physical Examination Vital signs: Vital Signs Pulse Resp BP Pulse Ox 82 18 119/61 99 01/16/19 08:00 01/16/19 08:00 01/16/19 08:00 01/16/19 08:00 General appearance: no acute distress, alert Eyes: non-icteric ENT: oropharynx moist Neck: supple, no JVD Effort: mildly labored Ascultation: Bilateral: wheezes, rhonchi Cardiovascular: regular rate and rhythm Gastrointestinal: normoactive bowel sounds, soft, non-tender Integumentary: normal Extremities: no cyanosis, no edema Musculoskeletal: no deformities Gait: normal posture normal mental status, non-focal exam, pupils equal and round, CN II-XII normal mood appropriate Results - Laboratory Findings CBC and BMP: 01/17/19 03:52 01/17/19 03:52 ABG POC ABG pH 7.376 (7.35-7.45) 01/16/19 08:47 POC ABG pCO2 43.6 (35-45) 01/16/19 08:47 POC ABG pO2 82 (80-105) 01/16/19 08:47 POC ABG HCO3 25.6 (22-26 mml/L) 01/16/19 08:47 POC ABG Total CO2 27 (23-27mmol/L) 01/16/19 08:47 POC ABG O2 Sat 96 01/16/19 08:47 PT/INR, D-dimer PT 12.9 Sec. (12.2-14.9) 01/16/19 07:58 INR 1.00 (0.87-1.13) 01/16/19 07:58 Abnormal lab findings: Abnormal Labs 01/16/19 01/16/19 01/16/19 07:58 07:58 07:58 WBC 12.6 H MCH 27 L Lymph % (Auto) Eos % (Auto) 4.7 H Lymph # Eos # 0.6 H Seg Neutrophils % 74.3 H Seg Neutrophils # 9.4 H Sodium Chloride Glucose 289 H POC Glucose Hemoglobin A1c 11.1 H Alkaline Phosphatase Total Creatine Kinase 198 H CK-MB (CK-2) 4.3 H Albumin TSH 01/16/19 01/16/19 01/16/19 21:21 21:40 23:48 WBC MCH Lymph % (Auto) Eos % (Auto) Lymph # Eos # Seg Neutrophils % Seg Neutrophils # Sodium Chloride Glucose 696 H* POC Glucose > 500 H > 500 H Hemoglobin A1c Alkaline Phosphatase Total Creatine Kinase CK-MB (CK-2) Albumin TSH 01/17/19 01/17/19 01/17/19 03:52 03:52 05:10 WBC MCH Lymph % (Auto) 12.7 L Eos % (Auto) Lymph # 1.1 L Eos # Seg Neutrophils % 84.3 H Seg Neutrophils # Sodium 132 L Chloride 94.8 L Glucose 576 H* POC Glucose 470 H Hemoglobin A1c Alkaline Phosphatase 157 H Total Creatine Kinase CK-MB (CK-2) Albumin 3.5 L TSH 01/17/19 01/17/19 01/17/19 08:18 08:31 11:53 WBC MCH Lymph % (Auto) Eos % (Auto) Lymph # Eos # Seg Neutrophils % Seg Neutrophils # Sodium Chloride Glucose POC Glucose 421 H 387 H Hemoglobin A1c Alkaline Phosphatase Total Creatine Kinase CK-MB (CK-2) Albumin TSH 30.770 H - Diagnostic Findings Chest x-ray: report reviewed (Reported no acute findings.), image reviewed Assessment and Plan 53-year-old female presenting with a chief complaint of shortness of breath. The patient states last night she had cold-like symptoms which include a cough productive and chest heaviness this been constant associated with shortness of breath. Patient states approximately 1-2 weeks ago she was diagnosed with PE a nd started on Eliquis. Patient denies history of fever. Patient currently gives her chest heaviness score of 9/10. EMS found the patient at home with a room air sat of approximately 80% and the patient is not on home O2. Upon arrival to the ED the patient was found to have faint expiratory wheezing posteriorly and was placed on BiPAP. Patient presently resting on 3 litres o2. Patient still has diffuse wheezing and rhonchi Patient says history of asthma for long time. Patient also has history of hypertension and diabetes. History of breast CA and Bilateral mastectomy. Patient has history of pulmonary embolism. Patient is on Apixaban. Patient also hs history of hypothyroidism. Patient has slight history of smoking. Smoked few cigaretts 2 years. Counselled to stop smoking. History of alcohol and drug abuse. 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 Allergic to multiple medications, [place], Haloperdol, pencillins,quetiapine, vancomycin. - Patient Problems (1) Acute respiratory failure with hypoxia Current Visit: Yes Status: Acute Plan to address problem: O2 4 litres via nasal canula. Albuterol/atrovent aerosol treatments q 6 hours. Continue I/V solumedrol. Continue levaquin. Patient is on Apixaban. Patient is on reglan. (2) COPD exacerbation Current Visit: Yes Status: Acute Plan to address problem: O2 4 litres via nasal canula. Albuterol/atrovent aerosol treatments q 6 hours. Continue I/V solumedrol. Continue levaquin. Patient is on Apixaban. Patient is on reglan. (3) HTN (hypertension) Current Visit: Yes Status: Chronic Qualifiers: Hypertension type: essential hypertension Qualified Code(s): I10 - Essential (primary) hypertension Plan to address problem: Management as per primary care. (4) Hypothyroidism (acquired) Current Visit: Yes Status: Chronic Plan to address problem: Management as per primary care. (5) IDDM (insulin dependent diabetes mellitus) Current Visit: Yes Status: Chronic Plan to address problem: Management as per primary care. (6) Pulmonary emboli Current Visit: No Status: Chronic Qualifiers: Acute cor pulmonale presence: without acute cor pulmonale Plan to address problem: Patient is on Apixaban.
[2019-01-17] MEDS: DESYREL PO SCH (21:20)
[2019-01-17] MEDS: LEVAQUIN 750MG/150ML 750 MG/150 ML BAG IV SCH (21:21)
[2019-01-17] MEDS ORDERED: NACL 0.9% 1000 ML 1,000 ML IV SCH (23:00)
[2019-01-18] MEDS: SYNTHROID PO SCH (06:12)
[2019-01-18] MEDS: SOLU-Medrol IV SCH ×3 (06:13→21:24)
[2019-01-18] MEDS: DUONEB *Not for PRN Use IH SCH ×4 (07:07→20:22)
[2019-01-18] MEDS: PULMICORT IH SCH ×2 (07:07→20:22)
[2019-01-18] MEDS: HumaLOG SUB-Q SCH ×7 (08:12→21:26)
[2019-01-18] MEDS: COZAAR PO SCH (09:51)
[2019-01-18] MEDS: NEURONTIN PO SCH ×3 (09:51→21:25)
[2019-01-18] MEDS: HCTZ PO SCH (09:51)
[2019-01-18] MEDS: TRILEPTAL PO SCH ×2 (09:51→21:25)
[2019-01-18] MEDS: ELIQUIS PO SCH ×2 (09:51→21:25)
[2019-01-18] MEDS: PEPCID IV SCH ×2 (09:52→21:25)
[2019-01-18] MEDS: ROBAXIN PO SCH ×2 (09:52→21:38)
[2019-01-18] MEDS: INVEGA PO SCH (09:52)
[2019-01-18] MEDS: LANTUS SUB-Q SCH ×2 (09:52→21:28)
--- NOTE | 2019-01-18 13:05 | Progress Note ---
Assessment and Plan 53-year-old female presenting with a chief complaint of shortness of breath. The patient states last night she had cold-like symptoms which include a cough productive and chest heaviness this been constant associated with shortness of breath. Patient states approximately 1-2 weeks ago she was diagnosed with PE and started on Eliquis. Patient denies history of fever. Patient currently gives her chest heaviness score of 9/10. EMS found the patient at home with a room air sat of approximately 80% and the patient is not on home O2. Upon arrival to the ED the patient was found to have faint expiratory wheezing posteriorly and was placed on BiPAP. Patient presently resting on 3 litres o2. Patient still has diffuse wheezing and rhonchi Patient says history of asthma for long time. Patient also has history of hypertension and diabetes. History of breast CA and Bilateral mastectomy. Patient has history of pulmonary embolism. Patient is on Apixaban. Patient also hs history of hypothyroidism. Patient has slight history of smoking. Smoked few cigaretts 2 years. Counselled to stop smoking. History of alcohol and drug abuse. She stopped doing drugs and alcohol Worked as [employer]. Not . Children 1. Allergic to multiple medications, [place], Haloperdol, pencillins,quetiapine, vancomycin. 01/18/19 Patient alert, awake and resting on 2 litres O2. O2 saturation 97%. Patient says breathing better.Patient afebrile . No leukocytosis. Angio CT of chest done 01/16/19 reported 1. Interval improvement of PTE burden along the left lower lobe without a new thromboembolism. 2. No acute findings - Patient Problems (1) Acute respiratory failure with hypoxia Current Visit: Yes Status: Acute Plan to address problem: O2 2 litres via nasal canula. Albuterol/atrovent aerosol treatments q 6 hours. Continue I/V solumedrol. Continue levaquin. Patient is on Apixaban. Patient is on reglan. (2) COPD exacerbation Current Visit: Yes Status: Acute Plan to address problem: O2 2 litres via nasal canula. Albuterol/atrovent aerosol treatments q 6 hours. Continue I/V solumedrol. Continue levaquin. Patient is on Apixaban. Patient is on reglan. (3) HTN (hypertension) Current Visit: Yes Status: Chronic Qualifiers: Hypertension type: essential hypertension Qualified Code(s): I10 - Essential (primary) hypertension Plan to address problem: Management as per primary care. (4) Hypothyroidism (acquired) Current Visit: Yes Status: Chronic Plan to address problem: Management as per primary care. (5) IDDM (insulin dependent diabetes mellitus) Current Visit: Yes Status: Chronic Plan to address problem: Management as per primary care. (6) Pulmonary emboli Current Visit: No Status: Chronic Qualifiers: Acute cor pulmonale presence: without acute cor pulmonale Plan to address problem: Patient is on Apixaban. Subjective Date of service: 01/18/19 Interval history: Patient alert, awake and resting on 2 litres O2. O2 saturation 97%. Patient says breathing better.Patient afebrile . No leukocytosis. Angio CT of chest done 01/16/19 reported 1. Interval improvement of PTE burden along the left lower lobe without a new thromboembolism. 2. No acute findings Objective Vital Signs - 12hr 01/18/19 01/18/19 01/18/19 04:57 07:07 08:09 Temperature 97.7 F Pulse Rate 52 L 49 L Pulse Rate [ 48 L Anterior Bilateral Throughout] Respiratory 20 16 Rate Respiratory 20 Rate [Anterior Bilateral Throughout] Blood Pressure 118/47 135/61 O2 Sat by Pulse 92 97 92 Oximetry 01/18/19 11:00 Temperature Pulse Rate 49 L Pulse Rate [ Anterior Bilateral Throughout] Respiratory Rate Respiratory Rate [Anterior Bilateral Throughout] Blood Pressure O2 Sat by Pulse Oximetry Constitutional: no acute distress, alert Eyes: non-icteric ENT: oropharynx moist Neck: supple, no JVD Effort: mildly labored Ascultation: Bilateral: wheezes, rhonchi Cardiovascular: regular rate and rhythm Gastrointestinal: normoactive bowel sounds, soft, non-tender Integumentary: normal Extremities: no cyanosis, no edema Neurologic: normal mental status, non-focal exam, pupils equal and round, CN II- XII normal Psychiatric: mood appropriate CBC and BMP: 01/17/19 03:52 01/17/19 22:26 ABG, PT/INR, D-dimer: ABG POC ABG pH 7.376 (7.35-7.45) 01/16/19 08:47 POC ABG pCO2 43.6 (35-45) 01/16/19 08:47 POC ABG pO2 82 (80-105) 01/16/19 08:47 POC ABG HCO3 25.6 (22-26 mml/L) 01/16/19 08:47 POC ABG Total CO2 27 (23-27mmol/L) 01/16/19 08:47 POC ABG O2 Sat 96 01/16/19 08:47 PT/INR, D-dimer PT 12.9 Sec. (12.2-14.9) 01/16/19 07:58 INR 1.00 (0.87-1.13) 01/16/19 07:58 Abnormal lab findings: Abnormal Labs 01/16/19 01/16/19 01/16/19 07:58 07:58 07:58 WBC 12.6 H MCH 27 L Lymph % (Auto) Eos % (Auto) 4.7 H Lymph # Eos # 0.6 H Seg Neutrophils % 74.3 H Seg Neutrophils # 9.4 H Sodium Chloride Glucose 289 H POC Glucose Hemoglobin A1c 11.1 H Alkaline Phosphatase Total Creatine Kinase 198 H CK-MB (CK-2) 4.3 H Albumin TSH 01/16/19 01/16/19 01/16/19 21:21 21:40 23:48 WBC MCH Lymph % (Auto) Eos % (Auto) Lymph # Eos # Seg Neutrophils % Seg Neutrophils # Sodium Chloride Glucose 696 H* POC Glucose > 500 H > 500 H Hemoglobin A1c Alkaline Phosphatase Total Creatine Kinase CK-MB (CK-2) Albumin TSH 01/17/19 01/17/19 01/17/19 03:52 03:52 05:10 WBC MCH Lymph % (Auto) 12.7 L Eos % (Auto) Lymph # 1.1 L Eos # Seg Neutrophils % 84.3 H Seg Neutrophils # Sodium 132 L Chloride 94.8 L Glucose 576 H* POC Glucose 470 H Hemoglobin A1c Alkaline Phosphatase 157 H Total Creatine Kinase CK-MB (CK-2) Albumin 3.5 L TSH 01/17/19 01/17/19 01/17/19 08:18 08:31 11:53 WBC MCH Lymph % (Auto) Eos % (Auto) Lymph # Eos # Seg Neutrophils % Seg Neutrophils # Sodium Chloride Glucose POC Glucose 421 H 387 H Hemoglobin A1c Alkaline Phosphatase Total Creatine Kinase CK-MB (CK-2) Albumin TSH 30.770 H 01/17/19 01/17/19 01/17/19 17:09 21:52 22:26 WBC MCH Lymph % (Auto) Eos % (Auto) Lymph # Eos # Seg Neutrophils % Seg Neutrophils # Sodium Chloride Glucose 514 H* POC Glucose 373 H > 500 H Hemoglobin A1c Alkaline Phosphatase Total Creatine Kinase CK-MB (CK-2) Albumin TSH 01/18/19 01/18/19 01/18/19 00:28 08:14 13:02 WBC MCH Lymph % (Auto) Eos % (Auto) Lymph # Eos # Seg Neutrophils % Seg Neutrophils # Sodium Chloride Glucose POC Glucose 411 H 430 H 337 H Hemoglobin A1c Alkaline Phosphatase Total Creatine Kinase CK-MB (CK-2) Albumin TSH CT scan - chest: report reviewed, image reviewed Additional Studies: Angio CT of chest. 01/16/19 IMPRESSION: 1. Interval improvement of PTE burden along the left lower lobe without a new thromboembolism. 2. No acute findings
[2019-01-18] MEDS: SODIUM CHLORIDE FLUSH SYRINGE 10 ML IV SCH ×2 (13:25→21:27)
--- NOTE | 2019-01-18 13:38 | Progress Note ---
Assessment and Plan Assessment and plan: Patient is a 53 yo woman with a history of tobacco dependent, breast cancer s/p bilateral mastectomies, asthma, NO chronic hypoxic respiratory failure on home o2, COPD, type 2 dm, hypertension and recurrent PE/DVT who presented with SOB. * pCXR IMPRESSION: No acute findings. * CTA chest COMPARISON: CTA of the chest from 01/05/2019. FINDINGS: PULMONARY ARTERIES: The pulmonary arteries are well opacified. Clot burden along the left lower lobe has improved. No new PTE is seen. AORTA AND ARTERIES: No acute abnormality. MEDIASTINUM: No mass, lymphadenopathy or other significant abnormality. The heart is normal in size without a pericardial effusion. There is no evidence of right heart strain. The trachea and main bronchi are patent and normal in caliber. LUNGS: There is probable mild atelectasis along the left lower lobe. The lungs are otherwise clear without a suspicious nodule/mass, pneumothorax or pleural effusion. ADDITIONAL FINDINGS: None. UPPER ABDOMEN: No acute findings. BONES: No acute abnormality. There are similar degenerative changes of the spine. IMPRESSION: 1. Interval improvement of PTE burden along the left lower lobe without a new thromboembolism. 2. No acute findings. Acute respiratory failure with hypoxia Current Visit: Yes Status: Acute Plan to address problem: Patient on high flow O2 May need Home o2 Cont Neb treatments IV Solumedrol and IV abx Acute COPD exacerbation Current Visit: Yes Status: Acute Plan to address problem: Patient on high flow O2 May need Home o2 Cont Neb treatments IV Solumedrol and IV abx Chronic Pulmonary emboli Current Visit: No Status: Chronic Qualifiers: Acute cor pulmonale presence: without acute cor pulmonale Plan to address problem: On Eliquis Old PE IDDM (insulin dependent diabetes mellitus) Current Visit: Yes Status: Chronic Plan to address problem: Cont Home insulin and coverage HTN (hypertension) Current Visit: Yes Status: Chronic Qualifiers: Hypertension type: essential hypertension Qualified Code(s): I10 - Essential (primary) hypertension Plan to address problem: Cont antihypertensives Hypothyroidism (acquired) Current Visit: Yes Status: Chronic Plan to address problem: COnt synthyroid and Check TSH HLD (hyperlipidemia) Current Visit: Yes Status: Chronic Qualifiers: Hyperlipidemia type: mixed hyperlipidemia Qualified Code(s): E78.2 - Mixed hyperlipidemia Plan to address problem: Cont statins Peripheral neuropathy Current Visit: Yes Status: Chronic Qualifiers: Peripheral neuropathy type: polyneuropathy, unspecified Qualified Code(s): G62.9 - Polyneuropathy, unspecified Plan to address problem: Cont Gabapentin DVT prophylaxis Current Visit: Yes Status: Acute Plan to address problem: On Lovenox and GI prophylaxis Wean down iv steroids Increase insulin History Interval history: Patient was seen and examined. Follow-up on current diagnosis of COPD. No overnight events reported to me. Patient denies any chest pain, shortness breath , nausea/vomiting or severe headaches. Imaging, nursing note, chart, labs and old chart reviewed. Discussed with patient. Hospitalist Physical - Physical exam Narrative exam: Gen: WDWN, NAD, Awake, Alert, Orientated HEENT: NCAT, EOMI, PERRL, OP Clear Neck: supple, no adenopathy, no thyromegaly, no JVD CVS/Heart: RRR, normal S1S2, pulses present bilaterally Chest/Lungs: CTA B, Symmetrical chest expansion, good air entry bilaterally GI/Abdomen: soft, NTND, good bowel sounds, no guarding or rebound /Bladder: no suprapubic tenderness, no CVA or paraspinal tenderness Extermity/Skin: no c/c/e, no obvious rash MSK: FROM x 4 Neuro: CN 2-12 grossly intact, no new focal deficits Psych: calm - Constitutional Vitals: Temp Pulse Resp BP Pulse Ox 98.2 F 50 L 18 135/58 94 01/18/19 13:07 01/18/19 13:07 01/18/19 13:07 01/18/19 13:07 01/18/19 13:07 General appearance: Present: well-nourished Results - Labs CBC & Chem 7: 01/17/19 03:52 01/17/19 22:26 Labs: Laboratory Last Values WBC 9.0 K/mm3 (4.5-11.0) 01/17/19 03:52 RBC 4.59 M/mm3 (3.65-5.03) 01/17/19 03:52 Hgb 12.6 gm/dl (10.1-14.3) 01/17/19 03:52 Hct 37.9 % (30.3-42.9) 01/17/19 03:52 MCV 83 fl (79-97) 01/17/19 03:52 MCH 28 pg (28-32) 01/17/19 03:52 MCHC 33 % (30-34) 01/17/19 03:52 RDW 15.2 % (13.2-15.2) 01/17/19 03:52 Plt Count 156 K/mm3 (140-440) 01/17/19 03:52 Lymph % (Auto) 12.7 % (13.4-35.0) L 01/17/19 03:52 [place] % (Auto) 2.7 % (0.0-7.3) 01/17/19 03:52 Eos % (Auto) 0.0 % (0.0-4.3) 01/17/19 03:52 Baso % (Auto) 0.3 % (0.0-1.8) 01/17/19 03:52 Lymph # 1.1 K/mm3 (1.2-5.4) L 01/17/19 03:52 [place] # 0.2 K/mm3 (0.0-0.8) 01/17/19 03:52 Eos # 0.0 K/mm3 (0.0-0.4) 01/17/19 03:52 Baso # 0.0 K/mm3 (0.0-0.1) 01/17/19 03:52 Seg Neutrophils % 84.3 % (40.0-70.0) H 01/17/19 03:52 Seg Neutrophils # 7.5 K/mm3 (1.8-7.7) 01/17/19 03:52 PT 12.9 Sec. (12.2-14.9) 01/16/19 07:58 INR 1.00 (0.87-1.13) 01/16/19 07:58 APTT 25.9 Sec. (24.2-36.6) 01/16/19 07:58 POC ABG pH 7.376 (7.35-7.45) 01/16/19 08:47 POC ABG pCO2 43.6 (35-45) 01/16/19 08:47 POC ABG pO2 82 (80-105) 01/16/19 08:47 POC ABG HCO3 25.6 (22-26 mml/L) 01/16/19 08:47 POC ABG Total CO2 27 (23-27mmol/L) 01/16/19 08:47 POC ABG O2 Sat 96 01/16/19 08:47 POC ABG Base Excess 0 ((-2) - (+3)mmol/L) 01/16/19 08:47 VBG pH 7.353 (7.320-7.420) 01/16/19 08:07 35 % 01/16/19 08:47 Sodium 132 mmol/L (137-145) L 01/17/19 03:52 Potassium 4.6 mmol/L (3.6-5.0) 01/17/19 03:52 Chloride 94.8 mmol/L (98-107) L 01/17/19 03:52 Carbon Dioxide 23 mmol/L (22-30) 01/17/19 03:52 19 mmol/L 01/17/19 03:52 BUN 16 mg/dL (7-17) 01/17/19 03:52 0.8 mg/dL (0.7-1.2) 01/17/19 03:52 Estimated GFR > 60 ml/min 01/17/19 03:52 20 % 01/17/19 03:52 Glucose 514 mg/dL (65-100) H* 01/17/19 22:26 POC Glucose 337 (70-105) H 01/18/19 13:02 11.1 % (4-6) H 01/16/19 07:58 Calcium 9.1 mg/dL (8.4-10.2) 01/17/19 03:52 < 0.20 mg/dL (0.1-1.2) 01/17/19 03:52 AST 18 units/L (5-40) 01/17/19 03:52 ALT 21 units/L (7-56) 01/17/19 03:52 157 units/L (35-129) H 01/17/19 03:52 198 units/L (30-135) H 01/16/19 07:58 CK-MB (CK-2) 4.3 ng/mL (0.0-4.0) H 01/16/19 07:58 CK-MB (CK-2) Rel Index 2.1 (0-4) 01/16/19 07:58 < 0.010 ng/mL (0.00-0.029) 08/02/19 07:58 NT-Pro-B Natriuret Pep 221.9 pg/mL (0-900) 01/16/19 07:58 7.4 g/dL (6.3-8.2) 01/17/19 03:52 3.5 g/dL (3.9-5) L 01/17/19 03:52 0.9 % 01/17/19 03:52 TSH 30.770 mlU/mL (0.270-4.200) H 01/17/19 08:31 Blood Type O POSITIVE 01/16/19 08:07 Antibody Screen Negative 01/16/19 08:07 Active Medications - Current Medications Current Medications: Generic Name Dose Route Start Last Admin Trade Name Freq PRN Reason Stop Dose Admin Acetaminophen 650 mg 01/16/19 20:51 Tylenol PO Q4H PRN Pain MILD(1-3)/Fever >100.5/[place] Albuterol 2.5 mg 01/16/19 20:54 Proventil IH Q4HRT PRN Shortness Of Breath Albuterol/Ipratropium 1 ampul 01/17/19 08:00 01/18/19 12:00 Duoneb *Not For Prn Use* IH 1 ampul QIDRT MALA Administration Apixaban 5 mg 01/16/19 22:00 01/18/19 09:51 Eliquis PO 5 mg BID MALA Administration Protocol Budesonide 0.5 mg 01/17/19 08:00 01/18/19 07:07 Pulmicort IH 0.5 mg Q12HRT MALA Administration Dextrose 50 ml 01/16/19 21:45 D50w (25gm) Syringe IV PRN PRN Hypoglycemia Famotidine 20 mg 01/16/19 22:00 01/18/19 09:52 Pepcid IV 20 mg BID MALA Administration Gabapentin 900 mg 01/16/19 23:00 01/18/19 13:18 Neurontin PO 900 mg TID MALA Administration Hydrochlorothiazide 25 mg 01/17/19 10:00 01/18/19 09:51 Hctz PO 25 mg QDAY MALA Administration Hydromorphone HCl 0.5 mg 01/16/19 20:51 Dilaudid IV Q3H PRN Pain , Severe (7-10) Hydroxyzine Pamoate 50 mg 01/16/19 20:46 Vistaril PO DAILY PRN Anxiety Levofloxacin/Dextrose 750 mg in 150 mls @ 100 mls/hr 01/16/19 21:00 01/17/19 21:21 Levaquin 750mg/150ml IV 100 mls/hr Q24H MALA Administration Protocol Insulin Glargine 24 units 01/18/19 13:35 Lantus SUB-Q BID MALA Insulin Human Lispro 0 unit 01/16/19 22:00 01/18/19 13:18 Humalog SUB-Q 8 unit ACHS MALA Administration Protocol Insulin Human Lispro 25 unit 01/17/19 07:30 01/18/19 13:17 Humalog SUB-Q 25 unit AC MALA Administration Levothyroxine Sodium 150 mcg 01/17/19 06:00 01/18/19 06:12 Synthroid PO 150 mcg QAM@0600 MALA Administration Losartan Potassium 100 mg 01/17/19 10:00 01/18/19 09:51 Cozaar PO 100 mg QDAY MALA Administration Methocarbamol 750 mg 01/16/19 22:00 01/18/19 09:52 Robaxin PO 750 mg BID MALA Administration Methylprednisolone Sodium Succinate 40 mg 01/18/19 10:04 01/18/19 13:24 Solu-Medrol IV 40 mg Q8HR MALA Administration Metoclopramide HCl 10 mg 01/16/19 20:51 Reglan IV Q6H PRN Nausea And Vomiting Ondansetron HCl 4 mg 01/16/19 20:51 Zofran IV Q8H PRN Nausea And Vomiting Oxcarbazepine 150 mg 01/17/19 10:00 01/18/19 09:51 Trileptal PO 150 mg DAILY MALA Administration Oxcarbazepine 300 mg 01/16/19 22:00 01/17/19 21:20 Trileptal PO 300 mg HS MALA Administration Oxycodone/Acetaminophen 1 tab 01/16/19 20:51 Percocet 5/325 PO Q6H PRN Pain, Moderate (4-6) Paliperidone 6 mg 01/16/19 21:00 01/18/19 09:52 Invega PO 6 mg QDAY MALA Administration Sodium Chloride 10 ml 01/16/19 22:00 01/18/19 13:25 Sodium Chloride Flush Syringe 10 Ml IV 10 ml BID MALA Administration Sodium Chloride 10 ml 01/16/19 20:51 Sodium Chloride Flush Syringe 10 Ml IV PRN PRN LINE FLUSH Tramadol HCl 50 mg 01/16/19 20:46 01/16/19 23:36 Ultram PO 50 mg BID PRN Administration Pain, Moderate (4-6) Trazodone HCl 50 mg 01/16/19 22:00 01/17/19 21:20 Desyrel PO 50 mg QHS MALA Administration
[2019-01-18] MEDS: DESYREL PO SCH (21:25)
[2019-01-18] MEDS: LEVAQUIN 750MG/150ML 750 MG/150 ML BAG IV SCH (21:26)
[2019-01-19] MEDS: SYNTHROID PO SCH (05:20)
[2019-01-19] MEDS: ULTRAM PO PRN ×2 (05:20→19:43)
[2019-01-19] MEDS: SOLU-Medrol IV SCH ×2 (05:20→18:45)
[2019-01-19] MEDS: HumaLOG SUB-Q SCH ×7 (07:59→22:07)
[2019-01-19] MEDS: PULMICORT IH SCH ×2 (08:48→19:51)
[2019-01-19] MEDS: DUONEB *Not for PRN Use IH SCH ×4 (08:48→19:51)
--- NOTE | 2019-01-19 10:41 | Progress Note ---
Assessment and Plan Assessment and plan: Patient is a 53 yo woman with a history of tobacco dependency, breast cancer s/p bilateral mastectomies, asthma, COPD, type 2 dm, hypertension and recurrent PE/DVT who presented with SOB. EMS found the patient at home with a room air sat of approximately 80% and the patient is not on home O2. Upon arrival to the ED the patient was found to have faint expiratory wheezing posteriorly and was placed on BiPAP. * pCXR IMPRESSION: No acute findings. * CTA chest COMPARISON: CTA of the chest from 01/05/2019. FINDINGS: PULMONARY ARTERIES: The pulmonary arteries are well opacified. Clot burden along the left lower lobe has improved. No new PTE is seen. AORTA AND ARTERIES: No acute abnormality. MEDIASTINUM: No mass, lymphadenopathy or other significant abnormality. The heart is normal in size without a pericardial effusion. There is no evidence of right heart strain. The trachea and main bronchi are patent and normal in caliber. LUNGS: There is probable mild atelectasis along the left lower lobe. The lungs are otherwise clear without a suspicious nodule/mass, pneumothorax or pleural effusion. ADDITIONAL FINDINGS: None. UPPER ABDOMEN: No acute findings. BONES: No acute abnormality. There are similar degenerative changes of the spine. IMPRESSION: 1. Interval improvement of PTE burden along the left lower lobe without a new thromboembolism. 2. No acute findings. Acute respiratory failure with hypoxia: try to wean off O2 Acute COPD exacerbation: treat with steroid, nebs, abx, o2 Chronic Pulmonary emboli: continue Eliquis IDDM (insulin dependent diabetes mellitus) with uncontrolled hyperglycemia: adjust insulin, wean down/decrease steroids, continue ssi HTN (hypertension) Cont antihypertensives Tobacco dependency: mitochondrial disorders counselor on stopping, offered nicotine patch Hypothyroidism (acquired): TSH was 30.77, so increased Levothyroxine to 200mcg/day starting tomorrow. HLD (hyperlipidemia): continue statins Peripheral neuropathy: Cont Gabapentin DVT prophylaxis On Lovenox and GI prophylaxis ?Mental disorder, ?Bipolar disorder, pt is vague on details but she is allegic to many antipsychotics including haldol, lithium and quetiapine full code Disposition: continue inpatient care, try to wean off O2, wean down steroid, hopefully d/c in 2-3 days History Interval history: Patient was seen and examined. Follow-up on current diagnosis of COPD. No overnight events reported to me. Patient denies any chest pain, nausea/vomiting or severe headaches. Imaging, nursing note, chart, labs and old chart reviewed. Discussed with patient. Hospitalist Physical - Physical exam Narrative exam: Gen: WDWN, NAD, Awake, Alert, Orientated HEENT: NCAT, EOMI, PERRL, OP Clear Neck: supple, no adenopathy, no thyromegaly, no JVD CVS/Heart: RRR, normal S1S2, pulses present bilaterally Chest/Lungs: CTA B, Symmetrical chest expansion, good air entry bilaterally GI/Abdomen: soft, NTND, good bowel sounds, no guarding or rebound /Bladder: no suprapubic tenderness, no CVA or paraspinal tenderness Extermity/Skin: no c/c/e, no obvious rash MSK: FROM x 4 Neuro: CN 2-12 grossly intact, no new focal deficits Psych: calm - Constitutional Vitals: Temp Pulse Resp BP Pulse Ox 97.8 F 89 18 147/61 100 01/19/19 05:19 01/19/19 08:48 01/19/19 09:20 01/19/19 05:19 01/19/19 08:48 General appearance: Present: well-nourished Results - Labs CBC & Chem 7: 01/17/19 03:52 01/17/19 22:26 Labs: Laboratory Last Values WBC 9.0 K/mm3 (4.5-11.0) 01/17/19 03:52 RBC 4.59 M/mm3 (3.65-5.03) 01/17/19 03:52 Hgb 12.6 gm/dl (10.1-14.3) 01/17/19 03:52 Hct 37.9 % (30.3-42.9) 01/17/19 03:52 MCV 83 fl (79-97) 01/17/19 03:52 MCH 28 pg (28-32) 01/17/19 03:52 MCHC 33 % (30-34) 01/17/19 03:52 RDW 15.2 % (13.2-15.2) 01/17/19 03:52 Plt Count 156 K/mm3 (140-440) 01/17/19 03:52 Lymph % (Auto) 12.7 % (13.4-35.0) L 01/17/19 03:52 [place] % (Auto) 2.7 % (0.0-7.3) 01/17/19 03:52 Eos % (Auto) 0.0 % (0.0-4.3) 01/17/19 03:52 Baso % (Auto) 0.3 % (0.0-1.8) 01/17/19 03:52 Lymph # 1.1 K/mm3 (1.2-5.4) L 01/17/19 03:52 [place] # 0.2 K/mm3 (0.0-0.8) 01/17/19 03:52 Eos # 0.0 K/mm3 (0.0-0.4) 01/17/19 03:52 Baso # 0.0 K/mm3 (0.0-0.1) 01/17/19 03:52 Seg Neutrophils % 84.3 % (40.0-70.0) H 01/17/19 03:52 Seg Neutrophils # 7.5 K/mm3 (1.8-7.7) 01/17/19 03:52 PT 12.9 Sec. (12.2-14.9) 01/16/19 07:58 INR 1.00 (0.87-1.13) 01/16/19 07:58 APTT 25.9 Sec. (24.2-36.6) 01/16/19 07:58 POC ABG pH 7.376 (7.35-7.45) 01/16/19 08:47 POC ABG pCO2 43.6 (35-45) 01/16/19 08:47 POC ABG pO2 82 (80-105) 01/16/19 08:47 POC ABG HCO3 25.6 (22-26 mml/L) 01/16/19 08:47 POC ABG Total CO2 27 (23-27mmol/L) 01/16/19 08:47 POC ABG O2 Sat 96 01/16/19 08:47 POC ABG Base Excess 0 ((-2) - (+3)mmol/L) 01/16/19 08:47 VBG pH 7.353 (7.320-7.420) 01/16/19 08:07 35 % 01/16/19 08:47 Sodium 132 mmol/L (137-145) L 01/17/19 03:52 Potassium 4.6 mmol/L (3.6-5.0) 01/17/19 03:52 Chloride 94.8 mmol/L (98-107) L 01/17/19 03:52 Carbon Dioxide 23 mmol/L (22-30) 01/17/19 03:52 19 mmol/L 01/17/19 03:52 BUN 16 mg/dL (7-17) 01/17/19 03:52 0.8 mg/dL (0.7-1.2) 01/17/19 03:52 Estimated GFR > 60 ml/min 01/17/19 03:52 20 % 01/17/19 03:52 Glucose 514 mg/dL (65-100) H* 01/17/19 22:26 POC Glucose > 500 (70-105) H 01/19/19 07:49 11.1 % (4-6) H 01/16/19 07:58 Calcium 9.1 mg/dL (8.4-10.2) 01/17/19 03:52 < 0.20 mg/dL (0.1-1.2) 01/17/19 03:52 AST 18 units/L (5-40) 01/17/19 03:52 ALT 21 units/L (7-56) 01/17/19 03:52 157 units/L (35-129) H 01/17/19 03:52 198 units/L (30-135) H 01/16/19 07:58 CK-MB (CK-2) 4.3 ng/mL (0.0-4.0) H 01/16/19 07:58 CK-MB (CK-2) Rel Index 2.1 (0-4) 01/16/19 07:58 < 0.010 ng/mL (0.00-0.029) 01/16/19 07:58 NT-Pro-B Natriuret Pep 221.9 pg/mL (0-900) 01/16/19 07:58 7.4 g/dL (6.3-8.2) 01/17/19 03:52 3.5 g/dL (3.9-5) L 01/17/19 03:52 0.9 % 01/17/19 03:52 TSH 30.770 mlU/mL (0.270-4.200) H 01/17/19 08:31 Blood Type O POSITIVE 01/16/19 08:07 Antibody Screen Negative 01/16/19 08:07 Active Medications - Current Medications Current Medications: Generic Name Dose Route Start Last Admin Trade Name Freq PRN Reason Stop Dose Admin Acetaminophen 650 mg 01/16/19 20:51 Tylenol PO Q4H PRN Pain MILD(1-3)/Fever >100.5/WILLSON Albuterol 2.5 mg 01/16/19 20:54 01/19/19 05:38 Proventil IH 2.5 mg Q4HRT PRN Administration Shortness Of Breath Albuterol/Ipratropium 1 ampul 01/17/19 08:00 01/19/19 08:48 Duoneb *Not For Prn Use* IH 1 ampul QIDRT MALA Administration Apixaban 5 mg 01/16/19 22:00 01/18/19 21:25 Eliquis PO 5 mg BID MALA Administration Protocol Budesonide 0.5 mg 01/17/19 08:00 01/19/19 08:48 Pulmicort IH 0.5 mg Q12HRT MALA Administration Dextrose 50 ml 01/16/19 21:45 D50w (25gm) Syringe IV PRN PRN Hypoglycemia Famotidine 20 mg 01/16/19 22:00 01/18/19 21:25 Pepcid IV 20 mg BID MALA Administration Gabapentin 900 mg 01/16/19 23:00 01/18/19 21:25 Neurontin PO 900 mg TID MALA Administration Hydrochlorothiazide 25 mg 01/17/19 10:00 01/18/19 09:51 Hctz PO 25 mg QDAY MALA Administration Hydromorphone HCl 0.5 mg 01/16/19 20:51 Dilaudid IV Q3H PRN Pain , Severe (7-10) Hydroxyzine Pamoate 50 mg 01/16/19 20:46 Vistaril PO DAILY PRN Anxiety Levofloxacin/Dextrose 750 mg in 150 mls @ 100 mls/hr 01/16/19 21:00 01/18/19 21:26 Levaquin 750mg/150ml IV 100 mls/hr Q24H MALA Administration Protocol Insulin Glargine 24 units 01/18/19 13:35 01/18/19 21:28 Lantus SUB-Q 24 units BID MALA Administration Insulin Human Lispro 0 unit 01/16/19 22:00 01/19/19 07:59 Humalog SUB-Q 10 unit ACHS MALA Administration Protocol Insulin Human Lispro 25 unit 01/17/19 07:30 01/19/19 07:59 Humalog SUB-Q 25 unit AC MALA Administration Levothyroxine Sodium 150 mcg 01/17/19 06:00 01/19/19 05:20 Synthroid PO 150 mcg QAM@0600 MALA Administration Losartan Potassium 100 mg 01/17/19 10:00 01/18/19 09:51 Cozaar PO 100 mg QDAY MALA Administration Methocarbamol 750 mg 01/16/19 22:00 01/18/19 21:38 Robaxin PO 750 mg BID MALA Administration Methylprednisolone Sodium Succinate 40 mg 01/18/19 10:04 01/19/19 05:20 Solu-Medrol IV 40 mg Q8HR MALA Administration Metoclopramide HCl 10 mg 01/16/19 20:51 Reglan IV Q6H PRN Nausea And Vomiting Ondansetron HCl 4 mg 01/16/19 20:51 Zofran IV Q8H PRN Nausea And Vomiting Oxcarbazepine 150 mg 01/17/19 10:00 01/18/19 09:51 Trileptal PO 150 mg DAILY MALA Administration Oxcarbazepine 300 mg 01/16/19 22:00 01/18/19 21:25 Trileptal PO 300 mg HS MALA Administration Oxycodone/Acetaminophen 1 tab 01/16/19 20:51 Percocet 5/325 PO Q6H PRN Pain, Moderate (4-6) Paliperidone 6 mg 01/16/19 21:00 01/18/19 09:52 Invega PO 6 mg QDAY MALA Administration Sodium Chloride 10 ml 01/16/19 22:00 01/18/19 21:27 Sodium Chloride Flush Syringe 10 Ml IV 10 ml BID MALA Administration Sodium Chloride 10 ml 01/16/19 20:51 Sodium Chloride Flush Syringe 10 Ml IV PRN PRN LINE FLUSH Tramadol HCl 50 mg 01/16/19 20:46 01/19/19 05:20 Ultram PO 50 mg BID PRN Administration Pain, Moderate (4-6) Trazodone HCl 50 mg 01/16/19 22:00 01/18/19 21:25 Desyrel PO 50 mg QHS MALA Administration
[2019-01-19] MEDS: ROBAXIN PO SCH ×2 (12:03→21:18)
[2019-01-19] MEDS: COZAAR PO SCH (12:04)
[2019-01-19] MEDS: HCTZ PO SCH (12:04)
[2019-01-19] MEDS: ELIQUIS PO SCH ×2 (12:04→21:18)
[2019-01-19] MEDS: LANTUS SUB-Q SCH ×2 (12:12→22:09)
[2019-01-19] MEDS: NEURONTIN PO SCH ×3 (12:12→21:19)
[2019-01-19] MEDS: SODIUM CHLORIDE FLUSH SYRINGE 10 ML IV SCH ×2 (12:12→21:21)
--- NOTE | 2019-01-19 13:07 | Progress Note ---
Assessment and Plan Patient alert, awake and resting on 2 litres O2. O2 saturation 96%. Patient says breathing better, still has mild bilateral wheezing. Patient afebrile . No leukocytosis. Angio CT of chest done 01/16/19 reported 1. Interval improvement of PTE burden along the left lower lobe without a new thromboembolism. 2. No acute findings - Patient Problems (1) Acute respiratory failure with hypoxia Current Visit: Yes Status: Acute Plan to address problem: O2 2 litres via nasal canula. Albuterol/atrovent aerosol treatments q 6 hours. Continue I/V solumedrol. Continue levaquin. Patient is on Apixaban. Patient is on reglan. (2) COPD exacerbation Current Visit: Yes Status: Acute Plan to address problem: O2 2 litres via nasal canula. Albuterol/atrovent aerosol treatments q 6 hours. Continue I/V solumedrol 60mg q 6 hours Continue levaquin. Patient is on Apixaban. Patient is on reglan. (3) HTN (hypertension) Current Visit: Yes Status: Chronic Qualifiers: Hypertension type: essential hypertension Qualified Code(s): I10 - Essential (primary) hypertension Plan to address problem: Management as per primary care. (4) Hypothyroidism (acquired) Current Visit: Yes Status: Chronic Plan to address problem: Management as per primary care. (5) IDDM (insulin dependent diabetes mellitus) Current Visit: Yes Status: Chronic Plan to address problem: Management as per primary care. (6) Pulmonary emboli Current Visit: No Status: Chronic Qualifiers: Acute cor pulmonale presence: without acute cor pulmonale Plan to address problem: Patient is on Apixaban. Subjective Date of service: 01/19/19 Interval history: Patient alert, awake and resting on 2 litres O2. O2 saturation 96%. Patient says breathing better, still has mild bilateral wheezing. Patient afebrile . No leukocytosis. Angio CT of chest done 01/16/19 reported 1. Interval improvement of PTE burden along the left lower lobe without a new thromboembolism. 2. No acute findings Objective Vital Signs - 12hr 01/19/19 01/19/19 01/19/19 05:19 05:20 05:40 Temperature 97.8 F Pulse Rate 60 Pulse Rate [ 60 Anterior Bilateral Throughout] Respiratory 20 20 Rate Respiratory 15 Rate [Anterior Bilateral Throughout] Blood Pressure 147/61 O2 Sat by Pulse 99 Oximetry 01/19/19 01/19/19 01/19/19 08:48 09:20 11:47 Temperature Pulse Rate Pulse Rate [ 89 67 Anterior Bilateral Throughout] Respiratory 18 Rate Respiratory 20 18 Rate [Anterior Bilateral Throughout] Blood Pressure O2 Sat by Pulse 100 Oximetry 01/19/19 01/19/19 12:04 12:19 Temperature 97.6 F Pulse Rate 66 66 Pulse Rate [ Anterior Bilateral Throughout] Respiratory 16 Rate Respiratory Rate [Anterior Bilateral Throughout] Blood Pressure 125/56 O2 Sat by Pulse 96 Oximetry Constitutional: no acute distress, alert Eyes: non-icteric ENT: oropharynx moist Neck: supple, no JVD Effort: mildly labored Ascultation: Bilateral: wheezes, rhonchi Cardiovascular: regular rate and rhythm Gastrointestinal: normoactive bowel sounds, soft, non-tender Integumentary: normal Extremities: no cyanosis, no edema Neurologic: normal mental status, non-focal exam, pupils equal and round, CN II- XII normal Psychiatric: mood appropriate CBC and BMP: 01/17/19 03:52 01/17/19 22:26 ABG, PT/INR, D-dimer: ABG POC ABG pH 7.376 (7.35-7.45) 01/16/19 08:47 POC ABG pCO2 43.6 (35-45) 01/16/19 08:47 POC ABG pO2 82 (80-105) 01/16/19 08:47 POC ABG HCO3 25.6 (22-26 mml/L) 01/16/19 08:47 POC ABG Total CO2 27 (23-27mmol/L) 01/16/19 08:47 POC ABG O2 Sat 96 01/16/19 08:47 PT/INR, D-dimer PT 12.9 Sec. (12.2-14.9) 01/16/19 07:58 INR 1.00 (0.87-1.13) 01/16/19 07:58 Abnormal lab findings: Abnormal Labs 01/16/19 01/16/19 01/16/19 07:58 07:58 07:58 WBC 12.6 H MCH 27 L Lymph % (Auto) Eos % (Auto) 4.7 H Lymph # Eos # 0.6 H Seg Neutrophils % 74.3 H Seg Neutrophils # 9.4 H Sodium Chloride Glucose 289 H POC Glucose Hemoglobin A1c 11.1 H Alkaline Phosphatase Total Creatine Kinase 198 H CK-MB (CK-2) 4.[address] [facility] 01/16/19 01/16/19 01/16/19 21:21 21:40 23:48 WBC MCH Lymph % (Auto) Eos % (Auto) Lymph # Eos # Seg Neutrophils % Seg Neutrophils # Sodium Chloride Glucose 696 H* POC Glucose > 500 H > 500 H Hemoglobin A1c Alkaline Phosphatase Total Creatine Kinase CK-MB (CK-2) Albumin [facility] 01/17/19 01/17/19 01/17/19 03:52 03:52 05:10 WBC MCH Lymph % (Auto) 12.7 L Eos % (Auto) Lymph # 1.1 L Eos # Seg Neutrophils % 84.3 H Seg Neutrophils # Sodium 132 L Chloride 94.8 L Glucose 576 H* POC Glucose 470 H Hemoglobin A1c Alkaline Phosphatase 157 H Total Creatine Kinase CK-MB (CK-2) Albumin 3.[address] [facility] 01/17/19 01/17/19 01/17/19 08:18 08:31 11:53 WBC MCH Lymph % (Auto) Eos % (Auto) Lymph # Eos # Seg Neutrophils % Seg Neutrophils # Sodium Chloride Glucose POC Glucose 421 H 387 H Hemoglobin A1c Alkaline Phosphatase Total Creatine Kinase CK-MB (CK-2) Albumin [facility] 30.770 H 01/17/19 01/17/19 01/17/19 17:09 21:52 22:26 WBC MCH Lymph % (Auto) Eos % (Auto) Lymph # Eos # Seg Neutrophils % Seg Neutrophils # Sodium Chloride Glucose 514 H* POC Glucose 373 H > 500 H Hemoglobin A1c Alkaline Phosphatase Total Creatine Kinase CK-MB (CK-2) Albumin [facility] 01/18/19 01/18/19 01/18/19 00:28 08:14 13:02 WBC MCH Lymph % (Auto) Eos % (Auto) Lymph # Eos # Seg Neutrophils % Seg Neutrophils # Sodium Chloride Glucose POC Glucose 411 H 430 H 337 H Hemoglobin A1c Alkaline Phosphatase Total Creatine Kinase CK-MB (CK-2) Albumin [facility] 01/18/19 01/18/19 01/19/19 16:14 20:27 07:49 WBC MCH Lymph % (Auto) Eos % (Auto) Lymph # Eos # Seg Neutrophils % Seg Neutrophils # Sodium Chloride Glucose POC Glucose 356 H 437 H > 500 H Hemoglobin A1c Alkaline Phosphatase Total Creatine Kinase CK-MB (CK-2) Albumin TSH 01/19/19 12:19 WBC MCH Lymph % (Auto) Eos % (Auto) Lymph # Eos # Seg Neutrophils % Seg Neutrophils # Sodium Chloride Glucose POC Glucose 416 H Hemoglobin A1c Alkaline Phosphatase Total Creatine Kinase CK-MB (CK-2) Albumin TSH
[2019-01-19] MEDS: TRILEPTAL PO SCH ×2 (14:30→21:19)
[2019-01-19] MEDS: INVEGA PO SCH (14:32)
[2019-01-19] MEDS: PEPCID PO SCH (21:18)
[2019-01-19] MEDS: DESYREL PO SCH (21:19)
[2019-01-19] MEDS ORDERED: SOLU-Medrol IV SCH (22:00)
[2019-01-19] MEDS ORDERED: LEVAQUIN PO SCH (22:00)
[2019-01-20] MEDS: SOLU-Medrol IV SCH ×2 (00:09→05:37)
[2019-01-20] MEDS ORDERED: SYNTHROID PO SCH ×2 (06:00)
--- NOTE | 2019-01-20 09:09 | Progress Note ---
Assessment and Plan Patient alert, awake and resting on 2 litres O2. O2 saturation 98%. Patient says breathing better. Patient says cough is also getting better. Patient afebrile . No leukocytosis. Angio CT of chest done 01/16/19 reported 1. Interval improvement of PTE burden along the left lower lobe without a new thromboembolism. 2. No acute findings - Patient Problems (1) Acute respiratory failure with hypoxia Current Visit: Yes Status: Acute Plan to address problem: O2 2 litres via nasal canula. Albuterol/atrovent aerosol treatments q 6 hours. Continue I/V solumedrol. Continue levaquin. Patient is on Apixaban. Patient is on reglan. (2) COPD exacerbation Current Visit: Yes Status: Acute Plan to address problem: O2 2 litres via nasal canula. Albuterol/atrovent aerosol treatments q 6 hours. Continue I/V solumedrol 60mg q 6 hours Continue levaquin. Patient is on Apixaban. Patient is on reglan. (3) HTN (hypertension) Current Visit: Yes Status: Chronic Qualifiers: Hypertension type: essential hypertension Qualified Code(s): I10 - Essential (primary) hypertension Plan to address problem: Management as per primary care. (4) Hypothyroidism (acquired) Current Visit: Yes Status: Chronic Plan to address problem: Management as per primary care. (5) IDDM (insulin dependent diabetes mellitus) Current Visit: Yes Status: Chronic Plan to address problem: Management as per primary care. (6) Pulmonary emboli Current Visit: No Status: Chronic Qualifiers: Acute cor pulmonale presence: without acute cor pulmonale Plan to address problem: Patient is on Apixaban. Subjective Date of service: 01/20/19 Interval history: Patient alert, awake and resting on 2 litres O2. O2 saturation 98%. Patient say s breathing better . Patient says cough is also getting better.Patient afebrile . No leukocytosis. Angio CT of chest done 01/16/19 reported 1. Interval improvement of PTE burden along the left lower lobe without a new thromboembolism. 2. No acute findings Objective Vital Signs - 12hr 01/19/19 01/19/19 01/20/19 22:00 23:15 05:29 Temperature 98.3 F 97.8 F Pulse Rate 67 52 L Pulse Rate [ 67 Right Radial] Respiratory 22 22 20 Rate Blood Pressure 118/52 126/58 O2 Sat by Pulse 92 92 98 Oximetry 01/20/19 07:55 Temperature Pulse Rate Pulse Rate [ Right Radial] Respiratory 16 Rate Blood Pressure O2 Sat by Pulse Oximetry Constitutional: no acute distress, alert Eyes: non-icteric ENT: oropharynx moist Neck: supple, no JVD Effort: mildly labored Ascultation: Bilateral: wheezes, rhonchi Cardiovascular: regular rate and rhythm Gastrointestinal: normoactive bowel sounds, soft, non-tender Integumentary: normal Extremities: no cyanosis, no edema Neurologic: normal mental status, non-focal exam, pupils equal and round, CN II- XII normal Psychiatric: mood appropriate CBC and BMP: 01/17/19 03:52 01/17/19 22:26 ABG, PT/INR, D-dimer: ABG POC ABG pH 7.376 (7.35-7.45) 01/16/19 08:47 POC ABG pCO2 43.6 (35-45) 01/16/19 08:47 POC ABG pO2 82 (80-105) 01/16/19 08:47 POC ABG HCO3 25.6 (22-26 mml/L) 01/16/19 08:47 POC ABG Total CO2 27 (23-27mmol/L) 01/16/19 08:47 POC ABG O2 Sat 96 01/16/19 08:47 PT/INR, D-dimer PT 12.9 Sec. (12.2-14.9) 01/16/19 07:58 INR 1.00 (0.87-1.13) 01/16/19 07:58 Abnormal lab findings: Abnormal Labs 01/16/19 01/16/19 01/16/19 07:58 07:58 07:58 WBC 12.6 H MCH 27 L Lymph % (Auto) Eos % (Auto) 4.7 H Lymph # Eos # 0.6 H Seg Neutrophils % 74.3 H Seg Neutrophils # 9.4 H Sodium Chloride Glucose 289 H POC Glucose Hemoglobin A1c 11.1 H Alkaline Phosphatase Total Creatine Kinase 198 H CK-MB (CK-2) 4.3 H Albumin TSH 01/16/19 01/16/19 01/16/19 21:21 21:40 23:48 WBC MCH Lymph % (Auto) Eos % (Auto) Lymph # Eos # Seg Neutrophils % Seg Neutrophils # Sodium Chloride Glucose 696 H* POC Glucose > 500 H > 500 H Hemoglobin A1c Alkaline Phosphatase Total Creatine Kinase CK-MB (CK-2) Albumin [facility] 01/17/19 01/17/19 01/17/19 03:52 03:52 05:10 WBC MCH Lymph % (Auto) 12.7 L Eos % (Auto) Lymph # 1.1 L Eos # Seg Neutrophils % 84.3 H Seg Neutrophils # Sodium 132 L Chloride 94.8 L Glucose 576 H* POC Glucose 470 H Hemoglobin A1c Alkaline Phosphatase 157 H Total Creatine Kinase CK-MB (CK-2) Albumin 3.5 L [facility] 01/17/19 01/17/19 01/17/19 08:18 08:31 11:53 WBC MCH Lymph % (Auto) Eos % (Auto) Lymph # Eos # Seg Neutrophils % Seg Neutrophils # Sodium Chloride Glucose POC Glucose 421 H 387 H Hemoglobin A1c Alkaline Phosphatase Total Creatine Kinase CK-MB (CK-2) Albumin [facility] 30.770 H 01/17/19 01/17/19 01/17/19 17:09 21:52 22:26 WBC MCH Lymph % (Auto) Eos % (Auto) Lymph # Eos # Seg Neutrophils % Seg Neutrophils # Sodium Chloride Glucose 514 H* POC Glucose 373 H > 500 H Hemoglobin A1c Alkaline Phosphatase Total Creatine Kinase CK-MB (CK-2) Albumin [facility] 01/18/19 01/18/19 01/18/19 00:28 08:14 13:02 WBC MCH Lymph % (Auto) Eos % (Auto) Lymph # Eos # Seg Neutrophils % Seg Neutrophils # Sodium Chloride Glucose POC Glucose 411 H 430 H 337 H Hemoglobin A1c Alkaline Phosphatase Total Creatine Kinase CK-MB (CK-2) Albumin [facility] 01/18/19 01/18/19 01/19/19 16:14 20:27 07:49 WBC MCH Lymph % (Auto) Eos % (Auto) Lymph # Eos # Seg Neutrophils % Seg Neutrophils # Sodium Chloride Glucose POC Glucose 356 H 437 H > 500 H Hemoglobin A1c Alkaline Phosphatase Total Creatine Kinase CK-MB (CK-2) Albumin [facility] 01/19/19 01/19/19 01/19/19 12:19 17:44 21:54 WBC MCH Lymph % (Auto) Eos % (Auto) Lymph # Eos # Seg Neutrophils % Seg Neutrophils # Sodium Chloride Glucose POC Glucose 416 H 441 H 327 H Hemoglobin A1c Alkaline Phosphatase Total Creatine Kinase CK-MB (CK-2) Albumin TSH 01/20/19 08:10 WBC MCH Lymph % (Auto) Eos % (Auto) Lymph # Eos # Seg Neutrophils % Seg Neutrophils # Sodium Chloride Glucose POC Glucose 376 H Hemoglobin A1c Alkaline Phosphatase Total Creatine Kinase CK-MB (CK-2) Albumin TSH
[2019-01-20] MEDS: HumaLOG SUB-Q SCH ×4 (09:46→12:49)
[2019-01-20] MEDS: LANTUS SUB-Q SCH (09:47)
[2019-01-20] MEDS: PEPCID PO SCH (10:09)
[2019-01-20] MEDS: COZAAR PO SCH (10:11)
[2019-01-20] MEDS: ELIQUIS PO SCH (10:12)
[2019-01-20] MEDS: ROBAXIN PO SCH (10:12)
[2019-01-20] MEDS: HCTZ PO SCH (10:12)
[2019-01-20] MEDS: TRILEPTAL PO SCH (10:12)
[2019-01-20] MEDS: NEURONTIN PO SCH ×2 (10:12→13:17)
[2019-01-20] MEDS: INVEGA PO SCH (10:13)
[2019-01-20] MEDS: SODIUM CHLORIDE FLUSH SYRINGE 10 ML IV SCH (10:13)
[2019-01-20] MEDS: DUONEB *Not for PRN Use IH SCH ×3 (10:48→17:26)
[2019-01-20] MEDS: PULMICORT IH SCH (10:49)
[2019-01-20 12:09] VITALS: BP 125/62
--- NOTE | 2019-01-20 14:57 | Discharge Summary ---
Providers - Providers Date of Admission: 01/16/19 11:39 Date of discharge: 01/20/19 Attending physician: ALEKSANDAR MENDOZA 01/16/19 20:51 Consult to Physician [CONS] Routine Comment: Consulting Provider: FLAQUITA GIFFORD Physician Instructions: Reason For Exam: acute respiratory failure 01/20/19 10:13 Consult to Mental Health [CONS] Routine Reason For Exam: bipolar disorder Place consult to:: mental health Primary care physician: BEREAVAL [facility] Hospitalization Condition: Fair Hospital course: Patient is a 53 yo woman with a history of tobacco dependency, breast cancer s/p bilateral mastectomies, asthma, COPD, type 2 dm, hypertension and recurrent PE/DVT who presented with SOB. EMS found the patient at home with a room air sat of approximately 80% and the patient is not on home O2. Upon arrival to the ED the patient was found to have faint expiratory wheezing posteriorly and was placed on BiPAP. * pCXR IMPRESSION: No acute findings. * CTA chest COMPARISON: CTA of the chest from 01/05/2019. FINDINGS: PULMONARY ARTERIES: The pulmonary arteries are well opacified. Clot burden along the left lower lobe has improved. No new PTE is seen. AORTA AND ARTERIES: No acute abnormality. MEDIASTINUM: No mass, lymphadenopathy or other significant abnormality. The heart is normal in size without a pericardial effusion. There is no evidence of right heart strain. The trachea and main bronchi are patent and normal in caliber. LUNGS: There is probable mild atelectasis along the left lower lobe. The lungs are otherwise clear without a suspicious nodule/mass, pneumothorax or pleural effusion. ADDITIONAL FINDINGS: None. UPPER ABDOMEN: No acute findings. BONES: No acute abnormality. There are similar degenerative changes of the spine. IMPRESSION: 1. Interval improvement of PTE burden along the left lower lobe without a new thromboembolism. 2. No acute findings. Discharge diagnosis: Acute respiratory failure with hypoxia: Due to COPD exacerbation, weaned off O2 Acute COPD exacerbation: treated with steroid, nebs, abx, o2 Chronic Pulmonary emboli: continue Eliquis IDDM (insulin dependent diabetes mellitus) with uncontrolled hyperglycemia: adjusted insulin with SSI for steroid use, we'll continue home regimen HTN (hypertension) Cont antihypertensives Tobacco dependency: school guidance counselor on stopping, offered nicotine patch Hypothyroidism (acquired): TSH was 30.77, so increased Levothyroxine to 200mcg/day HLD (hyperlipidemia): continue statins Peripheral neuropathy: Cont Gabapentin DVT prophylaxis On Lovenox and GI prophylaxis ?Mental disorder, ?Bipolar disorder, will follow-up with psych outpt Disposition: [facility] Hospitalist Physical Gen: WDWN, NAD, Awake, Alert, Orientated HEENT: NCAT, EOMI, PERRL, OP Clear Neck: supple, no adenopathy, no thyromegaly, no JVD CVS/Heart: RRR, normal S1S2, pulses present bilaterally Chest/Lungs: CTA B, Symmetrical chest expansion, good air entry bilaterally GI/Abdomen: soft, NTND, good bowel sounds, no guarding or rebound /Bladder: no suprapubic tenderness, no CVA or paraspinal tenderness Extermity/Skin: no c/c/e, no obvious rash MSK: FROM x 4 Neuro: CN 2-12 grossly intact, no new focal deficits Psych: calm Disposition: DC/[place]-70 ANOTHER TYPE HLTHCARE Time spent for discharge: 34 minutes Core Measure Documentation - Palliative Care Palliative Care/ Comfort Measures: Not Applicable - Core Measures Any of the following diagnoses?: none Exam - Constitutional Vitals: Temp Pulse Resp BP Pulse Ox 98.5 F 60 20 125/62 94 01/20/19 12:07 01/20/19 12:03 01/20/19 12:07 01/20/19 12:07 01/20/19 12:03 Plan Activity: advance as tolerated Weight Bearing Status: Weight Bear as Tolerated Diet: diabetic Special Instructions: record daily BP diary Follow up with: LUCAS SOUTH MD [Primary Care Provider] - 3-5 Days Prescriptions: Ipratropium/Albuterol Sulfate [Combivent Respimat] 4 gm IH BID #1 mist.inhal predniSONE [Deltasone] 60 mg PO QDAC #5 tablet ALBUTEROL Inhaler (OR & NICU) [Proair] 2 puff IH QID PRN 30 Days #1 vial PRN Reason: Shortness Of Breath Beclomethasone Dipropionate [Qvar] 8.7 gm IH DAILY PRN #1 aer.w.adap PRN Reason: Shortness Of Breath Levothyroxine [Synthroid] 200 mcg PO DAILY@0600 #30 tablet
[2019-01-21] MEDS ORDERED: DELTASONE PO SCH (08:00)
[2019-01-21] MEDS ORDERED: SOLU-Medrol IV SCH (10:00)
== END 2019-01-20 16:15 | disposition home or self-care (01) | DRG 189 ==
LOC: ED 07:47 → 4A 11:39 → 3A 01-18 12:09
PROVIDERS: ADMIT Internal Medicine; ATTEND Internal Medicine
PROC: 4A033R1 Measurement of Arterial Saturation, Peripheral, Percutaneous Approach (ICD-10-PCS; principal; 2019-01-16)
PROC: 5A09357 Assistance with Respiratory Ventilation, Less than 24 Consecutive Hours, Continuous Positive Airway Pressure (ICD-10-PCS; 2019-01-16)
DX: J96.01 Acute respiratory failure with hypoxia (principal); J44.1 Chronic obstructive pulmonary disease with (acute) exacerbation; I27.82 Chronic pulmonary embolism; E11.65 Type 2 diabetes mellitus with hyperglycemia; I10 Essential (primary) hypertension; F17.200 Nicotine dependence, unspecified, uncomplicated; E03.9 Hypothyroidism, unspecified; E11.42 Type 2 diabetes mellitus with diabetic polyneuropathy; F99 Mental disorder, not otherwise specified; F31.9 Bipolar disorder, unspecified; E78.2 Mixed hyperlipidemia; Z88.0 Allergy status to penicillin; Z88.1 Allergy status to other antibiotic agents; Z90.13 Acquired absence of bilateral breasts and nipples; Z86.718 Personal history of other venous thrombosis and embolism; Z79.4 Long term (current) use of insulin; Z71.6 Tobacco abuse counseling; Z88.8 Allergy status to other drugs, medicaments and biological substances; Z79.899 Other long term (current) drug therapy; Z95.5 Presence of coronary angioplasty implant and graft
CPT/HCPCS: 36415; 71045; 71275; 80048; 80053; 82550; 82553; 82803; 82805; 82947; 82962; 83036; 83880; 84443; 84484; 85025; 85610; 85730; 86850; 86900; 86901; 93005; 93010; 94640; 94644; 94760; 96374; G0378; J1815; J1956; J2930; J7030; Q9967